=== PATIENT | male | born 1930 | race Caucasian/White ===

== ENCOUNTER 2016-11-05 11:35 | Inpatient (IN) | payer OTHER, BC ==
--- NOTE | 2016-11-05 11:43 | PDOC ---
Attending Attestation - Resident Resident Name: Mark Lopez - ED Attending Attestation I have performed the following: I have examined & evaluated the patient, The case was reviewed & discussed with the resident, I agree w/resident's findings & plan, Exceptions are as noted - HPI HPI: 11/05/16 11:43 The patient is an 85-year-old male, with a significant past medical history of hypertension and hyperlipidemia who presents to the emergency department after an episode of lightheadedness, that was followed by a fall with head trauma. He did not lose consciousness. he denies neck pain or trauma. He denies chest pain, dyspnea, palpitations. he takes ASA 81 mg daily. He has no known history of atrial fibrillation. 11/05/16 11:54 - Physicial Exam PE: 11/05/16 11:43 He is well-appearing and in no acute distress Vitals noted C-spine is nontender There is a 4 cm laceration of the scalp, non-boggy, without evidence of depressed fracture 11/05/16 11:44 EKG noted, atrial fibrillation As compared to prior EKG performed in October 2012, the atrial fibrillation seems to be new 11/05/16 11:55 11/05/16 13:11 - Medical Decision Making 11/05/16 12:24 The patient is well-appearing and in no acute distress His fall was precipitated by lightheadedness The etiology of his lightheadedness is unclear His atrial fibrillation is new according to the patient and the family Given his age, it is possible that he experienced an episode of rapid atrial fibrillation, causing transient hypotension with resultant transient cerebral hypoperfusion and presyncope Will admit 11/05/16 12:36 CT preliminary reading: No acute intracranial pathology Chest x-ray emergency Department interpretation: No acute cardiopulmonary disease Clinical impression: New onset atrial fibrillation Presyncope Closed head injury Case discussed in detail with admitting provider including history, physical exam and ancillary studies. Admitting physician has assumed care for the patient, will follow all pending diagnostics and will complete the evaluation and treatment. 11/05/16 13:12 4 shahid placed in the scalp laceration, after area was prepped with Betadine, explored and irrigated
--- NOTE | 2016-11-05 11:58 | PDOC ---
History of Present Illness - General Chief Complaint: Syncope/Near Syncope Stated Complaint: SYNCOPE, HEAD LAC Time Seen by Provider: 11/05/16 11:41 History Source: Patient, Spouse Exam Limitations: No Limitations - History of Present Illness Initial Comments: 11/05/16 12:29 Patient is a 85 year old male with PMH of HTN & HLD who presents to ED with light-headedness & fall earlier today. This morning he was walking in his house when he suddenly felt light-headed and fell backwards. He hit the back of his head on a small step in between rooms. He did not lose consciousness. He denies chest pain or SOB preceding or after the fall. Denies palpitations, headache, Nausea, vomiting, diarrhea or constipation. His granddaughter states he has had episodes of light-headedness before, as recently as Jaimie time. He also reports a mild cough this week, non productive Patient & spouse state he has no history of cardiac problems. Past History - Travel Traveled outside of the country in the last 30 days: No Close contact w/someone who was outside of country & ill: No - Past Medical History Allergies/Adverse Reactions: Allergies Allergy/AdvReac Type Severity Reaction Status Date / Time No Known Allergies Allergy Verified 11/05/16 11:40 Home Medications: Ambulatory Orders Amlodipine Besylate [Norvasc -] 10 mg PO DAILY 10/18/12 Simvastatin [Zocor] 40 mg PO DAILY 10/18/12 Aspirin [Aspirin EC] 81 mg PO Q48H 11/05/16 Anemia: No Asthma: No Cancer: No Cardiac Disorders: No CVA: No COPD: No CHF: No Dementia: No Diabetes: No GI Disorders: No Disorders: No HTN: Yes Hypercholesterolemia: Yes Liver Disease: No Seizures: No Thyroid Disease: No - Surgical History Abdominal Surgery: No Appendectomy: No Cardiac Surgery: No Cholecystectomy: No Lung Surgery: No Neurologic Surgery: No Orthopedic Surgery: Yes (Left Shoulder Arthroscopy,Bilateral Shoulder Arthroscopy) - Psycho/Social/Smoking Cessation Hx Anxiety: No Suicidal Ideation: No Smoking History: Former smoker Have you smoked in the past 12 months: No If you are a former smoker, when did you quit?: 1977 Information on smoking cessation initiated: No Hx Alcohol Use: Yes (occasional) Drug/Substance Use Hx: No Substance Use Type: None Hx Substance Use Treatment: No Cardiac Specific PMH - Complaint Specific PMHX Pacemaker: No Review of Systems - Review of Systems Able to Perform ROS?: Yes Is the patient limited Bengali proficient: No Respiratory: Yes: Cough All Other Systems: Reviewed and Negative *Physical Exam - Vital Signs Last Vital Signs Temp Pulse Resp BP Pulse Ox 97.7 F 86 18 113/68 99 11/05/16 11:35 11/05/16 12:45 11/05/16 12:45 11/05/16 12:45 11/05/16 12:45 - Physical Exam General Appearance: Yes: Nourished, Appropriately Dressed HEENT: positive: EOMI, LUIS, Normal ENT Inspection, Pharynx Normal Neck: positive: Trachea midline, Normal Thyroid, Supple Respiratory/Chest: positive: Lungs Clear, Normal Breath Sounds Cardiovascular: positive: S1, S2, Irregularly Irregular Gastrointestinal/Abdominal: positive: Normal Bowel Sounds, Flat, Soft Musculoskeletal: positive: Normal Inspection Extremity: positive: Normal Inspection, Normal Range of Motion Integumentary: positive: Normal Color, Dry, Warm, Other (4cm laceration at left upper posterior scalp) Neurologic: positive: Fully Oriented, Alert, Normal Mood/Affect, Motor Strength 5/5 Heart Score/ECG Review - History History: Slightly suspicious - Electrocardiogram EKG: Non specific repolarization disturbance - Age Age: >/= 65 - Risk Factors Risk Factors Heart Score: Yes Hx Hypercholesterolemia, Yes Hx Hypertension, Yes Smoking History Based on the list above the patient has:: >/=3 risk factors or Hx atherosclerotic disease - Troponin Troponin: </= normal limit - Score Heart Score - Total: 5 - ECG Impressions Normal ECG: No Comment:: 11/05/16 12:40 Atrial Fibrillation, 92bpm ED Treatment Course - LABORATORY CBC & Chemistry Diagram: 11/05/16 12:00 11/05/16 12:00 - ADDITIONAL ORDERS Additional order review: Laboratory Results 11/05/16 11/05/16 11/05/16 12:00 12:00 12:00 INR 1.13 Sodium 130 L Potassium 3.5 D Chloride 98 Carbon Dioxide 24 Anion Gap 8 BUN 16 Creatinine 1.2 D Creat Clearance w eGFR 57.54 Random Glucose 129 H D Calcium 8.4 Magnesium 1.8 Total Bilirubin 0.6 D AST 25 ALT 16 D Alkaline Phosphatase 148 H Creatine Kinase 86 Troponin I < 0.03 L Total Protein 6.3 L Albumin 3.9 11/05/16 12:00 RBC 4.85 MCV 89.8 MCHC 32.4 RDW 12.8 MPV 10.4 Neutrophils % 58.4 Lymphocytes % 24.0 Monocytes % 13.8 H Eosinophils % 3.1 Basophils % 0.7 - RADIOLOGY Radiology Studies Ordered: 11/05/16 12:[address]: No acute Pathology noted 11/05/16 13:01 CXR shows no acute pathology. Medical Decision Making - Medical Decision Making 11/05/16 12:41 Ordered CBC, CMP, Cardiac Profile, INR, TSH. CXR & Head CT also ordered to r/o acute bleed or fx. Likely will need admission for new-onset Atrial Fibrillation. 11/05/16 12:47 Troponins (-) x1. Head CT negative for bleed or fx. CXR (-) as well. Case discussed with Dr Cortes & agrees that patient will need to be admitted for workup of new-onset Atrial Fibrillation. Will require telemetry bed for continuous cardiac monitoring. 11/05/16 13:12 4 shahid administered to laceration site. No active bleeding. *DC/Admit/Observation/Transfer Diagnosis at time of Disposition: New onset atrial fibrillation, Pre-syncope, Closed head injury - Discharge Dispostion Condition at time of disposition: Stable Admit: Yes Decision to Admit order Date/Time: Decision to Admit Order Category Date Time Status Decision to Admit to Hospital Routine Phy Order 11/05/16 13:00 Ordered - Referrals
[2016-11-05 12:06] LABS: BASOPHIL 0.7 % (0-2.0); EOSINOPHIL 3.1 % (0-4.5); MCHC 32.4 g/dl (32.0-35.9); MEAN CELL VOLUME 89.8 fl (80-96); MEAN PLT VOLUME 10.4 fl (7.5-11.1); NEUTROPHILS 58.4 % (42.8-82.8); PLATELET COUNT 135 K/MM3 (134-434); RDW 12.8 % (11.9-15.9); WHITE BLOOD COUNT 4.5 K/mm3 (4.0-10.0)
[2016-11-05 12:13] VITALS: BMI 23.5
[2016-11-05 12:17] LABS: INR 1.13 (0.82-1.09); PROTHROMBIN TIME (PATIENT) 12.3 SEC (10.2-13.0)
[2016-11-05 12:21] LABS: CPK(DFH) 86 IU/L (38-174)
[2016-11-05 12:22] LABS: ALBUMIN 3.9 g/dl (3.5-5.0); BILIRUBIN,TOTAL 0.6 mg/dl (0.2-1.0); CALCIUM 8.4 mg/dl (8.4-10.2); CREATININE 1.2 mg/dl (0.6-1.3); MAGNESIUM 1.8 mg/dL (1.8-2.4); TOT PROT 6.3 g/dl (6.4-8.3)
[2016-11-05 12:33] LABS: TROPONIN I (DFP) < 0.03 ng/ml (0.03-0.50)
[2016-11-05] MEDS: BACITRACIN 30 GM TUBE TOPICAL OINTMENT TP SCH (15:41)
[2016-11-05] MEDS: METOPROLOL TARTRATE 25 MG TABLET (FP) PO SCH ×2 (15:41→21:31)
--- NOTE | 2016-11-05 15:56 | HP ---
CHIEF COMPLAINT: lightheaded, dizziness PCP: Mally HISTORY OF PRESENT ILLNESS: This is an 85 year old male with a past medical history of HTN, HLD who presented to the ED s/p fall this AM. Pt states that while he was walking around his house he suddenly felt dizzy and fell backwards and to the left, hitting his head on a wooden step sustaining a scalp laceration. He denies LOC. He states that prior to the episode of dizziness he felt fine but does report a cough x 4 days. Denies fever, CP, SOB, palpitations, abdominal pain, N/V/D. ER course was notable for: (1) ECG with atrial fibrillation (2) troponin negative x 1. (3) CT head with no acute disease Recent Travel: pt denies PAST MEDICAL HISTORY: HTN HLD PAST SURGICAL HISTORY: right shoulder arthroscopy bilat knee arthroscopy Social History: Smoking: quit 1977 Alcohol: occ glass of wine Drugs: pt denies Family History: mother age 84, [place] father age 70, lung CA brother alive, CAD, s/p CABG brother s/p colon CA 4 other brothers and one sister alive and well son with HTN, ministroke Allergies No Known Allergies Allergy (Verified 11/05/16 11:40) HOME MEDICATIONS: 3 Medication Instructions Recorded Amlodipine Besylate [Norvasc -] 10 mg PO DAILY 10/18/12 Simvastatin [Zocor] 40 mg PO DAILY 10/18/12 Aspirin [Aspirin EC] 81 mg PO Q48H 11/05/16 REVIEW OF SYSTEMS CONSTITUTIONAL: Absent: fever, chills, diaphoresis, generalized weakness, malaise, loss of appetite, weight change HEENT: Absent: rhinorrhea, nasal congestion, throat pain, throat swelling, difficulty swallowing, mouth swelling, ear pain, eye pain, visual changes CARDIOVASCULAR: Absent: chest pain, syncope, palpitations, irregular heart rate, lightheadedness , peripheral edema RESPIRATORY: Absent: cough, shortness of breath, dyspnea with exertion, orthopnea, wheezing, stridor, hemoptysis GASTROINTESTINAL: Absent: abdominal pain, abdominal distension, nausea, vomiting, diarrhea, constipation, melena, hematochezia GENITOURINARY: Absent: dysuria, frequency, urgency, hesitancy, hematuria, flank pain, genital pain MUSCULOSKELETAL: Present: fall with head injury Absent: myalgia, arthralgia, joint swelling, back pain, neck pain SKIN: Present: laceration right occipital region Absent: rash, itching, pallor HEMATOLOGIC/IMMUNOLOGIC: Absent: easy bleeding, easy bruising, lymphadenopathy, frequent infections ENDOCRINE: Absent: unexplained weight gain, unexplained weight loss, heat intolerance, cold intolerance NEUROLOGIC: Present: dizziness Absent: headache, focal weakness or paresthesias, unsteady gait, seizure, mental status changes, bladder or bowel incontinence PSYCHIATRIC: Absent: anxiety, depression, suicidal or homicidal ideation, hallucinations. PHYSICAL EXAMINATION Vital Signs - 24 hr 3 11/05/16 11/05/16 14:00 15:15 Temperature 97.6 F 98.4 F Pulse Rate 85 Pulse Rate [ 86 Left Apical] Respiratory 16 18 Rate Blood Pressure 127/58 Blood Pressure 118/54 [Right Arm] O2 Sat by Pulse 99 100 Oximetry (%) GENERAL: Awake, alert, and fully oriented, in no acute distress. HEAD: Normal with no signs of trauma. EYES: Pupils equal, round and reactive to light, extraocular movements intact, sclera anicteric, conjunctiva clear. No lid lag. EARS, NOSE, THROAT: Ears normal, nares patent, oropharynx clear without exudates. Moist mucous membranes. NECK: Normal range of motion, supple without lymphadenopathy, JVD, or masses. LUNGS: Breath sounds equal, clear to auscultation bilaterally. No crackles. No accessory muscle use. scattered expiratory wheeze right lung everett HEART: Irregular rate and rhythm, normal S1 and S2 without murmur, rub or gallop. ABDOMEN: Soft, nontender, not distended, normoactive bowel sounds, no guarding, no rebound, no masses. No hepatomegaly or splenomegaly. MUSCULOSKELETAL: Normal range of motion at all joints. No bony deformities or tenderness. No CVA tenderness. UPPER EXTREMITIES: 2+ pulses, warm, well-perfused. No cyanosis. No clubbing. Cap refill <2 seconds. No peripheral edema. LOWER EXTREMITIES: 2+ pulses, warm, well-perfused. No calf tenderness. No peripheral edema. NEUROLOGICAL: Cranial nerves II-XII intact. Normal speech. Normal gait. PSYCHIATRIC: Cooperative. Good eye contact. Appropriate mood and affect. SKIN: Warm, dry, normal turgor, no rashes or lesions noted. Laceration with 4 shahid left occipital area Laboratory Results - last 24 hr 3 11/05/16 11/05/16 11/05/16 12:00 12:00 12:00 WBC 4.5 RBC 4.85 Hgb 14.1 Hct 43.5 MCV 89.8 MCHC 32.4 RDW 12.8 Plt Count 135 MPV 10.4 Neutrophils % 58.4 Lymphocytes % 24.0 Monocytes % 13.8 H Eosinophils % 3.1 Basophils % 0.7 INR 1.13 Sodium 130 L Potassium 3.5 D Chloride 98 Carbon Dioxide 24 Anion Gap 8 BUN 16 Creatinine 1.2 D Creat Clearance w eGFR 57.54 Random Glucose 129 H D Calcium 8.4 Magnesium 1.8 Total Bilirubin 0.6 D AST 25 ALT 16 D Alkaline Phosphatase 148 H Creatine Kinase 86 Troponin I < 0.03 L Total Protein 6.3 L Albumin [address]: No evidence of acute intracranial pathology CXR: No acute pathology. No significant change since 10/18/12 ASSESSMENT/PLAN: 85yM with PMH HTN, HLD presented to ED with presyncope with head injury. Pt is being admitted for new onset atrial fibrillation. Presyncope with head injury - head CT negative - likely due to new onset afib - monitor tele x 24h - troponin neg x 1, trend x2 more - shahid in place, bacitracin daily and leave open to air atrial fibrillation, new onset - rebecca Krueger - hi norvas, start metoprolol 12.5mg BID - CHADSVASC 3, start eliquis for now, REBECCA sotelo fall risk on monday as he knows pt better. hold ASA for now cough/wheezing - flu swab ordered - CXR neg - albuterol x 1 now and PRN HTN - monitor BP on metoprolol and adjust dose accordingly HLD - home zocor 40mg changed to formulary lipitor 20mg DVT PPX - mod risk, started on eliquis for Afib FEN - sodium 130, gentle IV hydration, NS @ 75cc/hr - repeat BMP 6pm with troponin - low sodium diet Dispo: Pt currently requires inpatient care. Visit type - Emergency Visit Emergency Visit: Yes ED Registration Date: 11/05/16 Care time: The patient presented to the Emergency Department on the above date and was hospitalized for further evaluation of their emergent condition. - New Patient This patient is new to me today: Yes Date on this admission: 11/05/16 - Critical Care Critical Care patient: No
[2016-11-05] MEDS ORDERED: SODIUM CHLORIDE 1,000 ML IV SCH (16:00)
[2016-11-05] MEDS ORDERED: ALBUTEROL SO4 0.083% IH SOL 2.5 MG/3 ML VIAL.NEB. NEB PRN (16:15)
[2016-11-05 16:36] LABS: THYROID STIMULATING HORMONE 2.68 uIU/ml (0.358-3.74)
[2016-11-05] MEDS ORDERED: PT OWN MED DRAWER 7, Y5N ONE (17:32)
[2016-11-05 18:29] LABS: CPK(DFH) 76 IU/L (38-174)
[2016-11-05 20:03] LABS: TROPONIN I (DFP) < 0.03 ng/ml (0.03-0.50)
[2016-11-05] MEDS: ATORVASTATIN CA 20 MG TABLET (FP) PO SCH (21:31)
[2016-11-05] MEDS ORDERED: APIXABAN 5 MG TABLET PO SCH (22:00)
--- NOTE | 2016-11-05 23:22 | HOSP ---
Subjective - Review of Symptoms Events since last encounter: Hospitalist Encounter Notified by RN that the patient appears to be confused. Arrived to bedside, patient is found bending down by bedside table, when asked what he was doing, he stated "I'm looking for my shoes to go home" Patient is alert and oriented to name, month, year and birthdate. Not oriented to place. Performed mini mental screen- 1/3 Clock- could only draw [place] PE formed see assessment Patient placed closer to nursing station Order placed for Fall Risk Neurological: Yes: Confusion Physical Examination Vital Signs: Vital Signs Temperature 99.5 F 11/05/16 23:00 Pulse Rate 75 11/05/16 22:35 Respiratory Rate 18 11/05/16 22:35 Blood Pressure 121/62 11/05/16 22:35 O2 Sat by Pulse Oximetry (%) 97 11/05/16 22:35 Constitutional: Yes: Well Nourished, No Distress, Calm Eyes: Yes: WNL, Conjunctiva Clear, EOM Intact HENT: Yes: WNL, Atraumatic, Normocephalic Neck: Yes: WNL, Supple, Trachea Midline Cardiovascular: Yes: WNL, Regular Rate and Rhythm, S1, S2 Respiratory: Yes: WNL, Regular, CTA Bilaterally Gastrointestinal: Yes: WNL, Normal Bowel Sounds, Soft Musculoskeletal: Yes: WNL
[2016-11-06] LABS: CPK(DFH) 84 IU/L (38-174)
[2016-11-06 00:11] LABS: TROPONIN I (DFP) < 0.03 ng/ml (0.03-0.50)
--- NOTE | 2016-11-06 07:56 | CON.CARD ---
Consult Consult Specialty:: cardio Referred by:: hospitalist (for ashleigh) Reason for Consultation:: afib - History of Present Illness Chief Complaint: dizzy with fall History of Present Illness: 85 yo male presented with dizziness and fall. on DOA pt reports he suddenly felt dizzy and fell backwards and to the left, hitting his head on a wooden step sustaining a scalp laceration. He denies LOC. this is not the first fall he has had, as per verbal report to me from hospitalist who obtained hx from family of 1 or 2 prior falls, ? related to pain med he was on then. noted to be in afib in ER. overnight he became confused and trying to get dressed to leave the hospital currently he states he fell the day before yesterday he thinks, but cannot recall what happened or any sx's at that time PMH: HTN HPL no known cva/tia denies etoh or cigs (once in a while 1 shot of etoh) - Alcohol/Substance Use Hx Alcohol Use: Yes (occasional) - Smoking History Smoking history: Former smoker Have you smoked in the past 12 months: No If you are a former smoker, when did you quit?: 1977 Home Medications - Allergies Allergies/Adverse Reactions: Allergies Allergy/AdvReac Type Severity Reaction Status Date / Time No Known Allergies Allergy Verified 11/05/16 11:40 - Home Medications Home Medications: Ambulatory Orders Amlodipine Besylate [Norvasc -] 10 mg PO DAILY 10/18/12 Simvastatin [Zocor] 40 mg PO DAILY 10/18/12 Aspirin [Aspirin EC] 81 mg PO Q48H 11/05/16 Vital Signs: Vital Signs Temperature 98.5 F 11/06/16 06:00 Pulse Rate 86 11/06/16 06:00 Respiratory Rate 18 11/06/16 06:00 Blood Pressure 157/71 11/06/16 06:00 O2 Sat by Pulse Oximetry (%) 98 11/06/16 02:00 - Other Data Labs, Other Data: INR, PTT INR 1.13 (0.82-1.09) 11/05/16 12:00 Troponin, BNP 11/05/16 11/05/16 18:00 23:30 Troponin I < 0.03 L < 0.03 L Troponin, BNP 11/05/16 11/05/16 18:00 23:30 Troponin I < 0.03 L < 0.03 L Laboratory Tests 11/05/16 11/05/16 11/05/16 12:00 12:00 12:00 WBC 4.5 Hgb 14.1 Plt Count 135 Sodium 130 L Potassium 3.5 D Carbon Dioxide 24 BUN 16 Creatinine 1.2 D AST 25 ALT 16 D Troponin I < 0.03 L TSH 2.68 11/05/16 11/05/16 18:00 23:30 WBC Hgb Plt Count Sodium Potassium Carbon Dioxide BUN Creatinine AST ALT Troponin I < 0.03 L < 0.03 L TSH ekg 11/05: afib, normal axis/intervals; no path q's; no ST-T abn tele: afib HR to 100s--NSR since yest evening Imaging - Results Chest X-ray: Report Reviewed (clear lungs/pleura) Cat Scan: Report Reviewed (head: no acute cva or bleed) Assessment/Plan new afib, paroxysmal: -HR well controlled on its own -doubt the cause of his LH sx's, though possible--more likely was reactive to acute stress/adrenergic tone elevation in setting of post-fall/injury -CHADS VASC 3--risk of cva approx 3%/year -pt denies h/o GIB/PUD; however his falls risk is concerning; it remains unclear to me at this time whether or not there are reversible/correctable causes for his dizzy spells/falls, though he seems more likely than not to be at hi risk for falls; -he is also at risk for confusion while here in the hospital, with possible agitation and falls if gets up and walks around on his own as he was apparently trying to do last night -of particular concern is that the fall this time resulted in head trauma ( though CT head ruled out ICH) -his level of disorientation at present could be completely temporary (i.e. "sun -downing"), but if not, this is also a concern for risk of recurrent uncontrolled falls with injury -therefore, recommend for now holding AC and obtaining input from dr sotelo in am who knows pt from before -will change back to ASA 81 for now -needs PT gait eval to assess balance and falls risk as well -agree with low dose metoprolol for now as doing -check echo for LV fxn to further risk-stratify cva risk -serial trops negative, no isch ecg changes--no need inpt stress testing dizziness/falls: -? vestibular/balance problem -r/o orthostatics--check positional VSs here HTN: -well controlled on BB (for afib) -cont same
[2016-11-06 08:24] LABS: BASOPHIL 0.6 % (0-2.0); EOSINOPHIL 2.4 % (0-4.5); MCH 30.4 pg (25.7-33.7); MEAN CELL VOLUME 89.4 fl (80-96); MEAN PLT VOLUME 10.5 fl (7.5-11.1); PLATELET COUNT 92 K/MM3 (134-434)
[2016-11-06 08:40] LABS: ALBUMIN 3.1 g/dl (3.4-5.0); ALK PHOS 130 U/L (45-117); ANION GAP 9 (8-16); BILIRUBIN,TOTAL 0.6 mg/dL (0.2-1.0); CALCIUM 7.4 mg/dL (8.5-10.1); CO2 25 mmol/L (21-32); CREATININE 0.9 mg/dL (0.7-1.3); GLUCOSE,RANDOM 87 mg/dL (74-106); MAGNESIUM 1.9 mg/dL (1.8-2.4); PHOSPHOROUS 3.1 mg/dL (2.5-4.9); SGOT/AST 18 U/L (15-37); SGPT/ALT 16 U/L (12-78); TOT PROT 5.4 g/dl (6.4-8.2)
[2016-11-06 09:07] LABS: TROPONIN I < 0.02 ng/ml (0.00-0.05)
[2016-11-06] MEDS ORDERED: PT OWN MED DRAWER 7, Y5N ONE (09:38)
[2016-11-06] MEDS: ASPIRIN COATED 81 MG TABLET.EC PO SCH (09:44)
[2016-11-06] MEDS: METOPROLOL TARTRATE 25 MG TABLET (FP) PO SCH (09:44)
[2016-11-06] MEDS: BACITRACIN 30 GM TUBE TOPICAL OINTMENT TP SCH (09:48)
--- NOTE | 2016-11-06 12:38 | PN ---
Physical Exam: SUBJECTIVE: Patient seen and examined oob to chair. present. Feels better. No further episodes of dizziness. +Cough x several days. OBJECTIVE: Vital Signs Period Temp Pulse Resp BP Sys/Villalobos Pulse Ox Last 24 Hr 97.6 F-101.2 F 69-86 16-18 118-157/54-71 97-100 GENERAL: The patient is awake, alert, and fully oriented, in no acute distress. HEAD: Surgical shahid left occiput EYES: PERRL, extraocular movements intact, sclera anicteric, conjunctiva clear. No ptosis. LUNGS: Diffuse rhonchi and mild expiratory wheezing, cough HEART: Regular rate and rhythm, S1, S2 without murmur, rub or gallop. ABDOMEN: Soft, nontender, nondistended, normoactive bowel sounds, no guarding, no rebound EXTREMITIES: 2+ pulses, warm, well-perfused, no edema. NEUROLOGICAL: Cranial nerves II through XII grossly intact. Normal speech, gait not observed. Laboratory Results - last 24 hr 11/05/16 11/05/16 11/06/16 18:00 23:30 05:00 WBC Corrected WBC (auto) RBC Hgb Hct MCV MCHC RDW Plt Count MPV Neutrophils % Lymphocytes % Monocytes % Eosinophils % Basophils % Sodium 133 L Potassium 3.9 Chloride 99 Carbon Dioxide 25 Anion Gap 9 BUN 12 Creatinine 0.9 Creat Clearance w eGFR > 60 Random Glucose 87 Calcium 7.4 L Phosphorus 3.1 Magnesium 1.9 Total Bilirubin 0.6 AST 18 ALT 16 Alkaline Phosphatase 130 H Creatine Kinase 76 84 82 Troponin I < 0.03 L < 0.03 L < 0.02 Total Protein 5.4 L Albumin 3.1 L 11/06/16 11/06/16 05:00 06:00 WBC 4.0 Corrected WBC (auto) 4.00 RBC 3.91 L Hgb 11.9 Hct 35.0 L MCV 89.4 MCHC 34.0 RDW 13.0 Plt Count 92 L MPV 10.5 Neutrophils % 60.0 Lymphocytes % 22.7 Monocytes % 14.3 H Eosinophils % 2.4 Basophils % 0.6 Sodium Potassium Chloride Carbon Dioxide Anion Gap BUN Creatinine Creat Clearance w eGFR Random Glucose Calcium Phosphorus Magnesium Total Bilirubin AST ALT Alkaline Phosphatase Creatine Kinase Cancelled Troponin I Cancelled Total Protein Albumin Active Medications Generic Name Dose Route Start Last Admin Trade Name Freq PRN Reason Stop Dose Admin Albuterol Sulfate 1 amp 11/05/16 16:15 11/05/16 16:28 Ventolin 0.083% Nebulizer Soln - NEB 1 amp QIDR PRN Administration WHEEZING Aspirin 81 mg 11/06/16 10:00 11/06/16 09:44 Ecotrin - PO 81 mg DAILY MARY Administration Atorvastatin Calcium 20 mg 11/05/16 22:00 11/05/16 21:31 Lipitor - PO 20 mg HS AMRY Administration Bacitracin 1 applic 11/05/16 15:00 11/06/16 09:48 Bacitracin - TP 1 applic DAILY MARY Administration Metoprolol Tartrate 25 mg 11/06/16 10:00 11/06/16 09:44 Lopressor - PO 25 mg DAILY MARY Administration ASSESSMENT & PLAN 85 year-old man with a PMH of HTN and HLD, admitted for presyncope leading to fall and closed head injury, and newly diagnosed paroxysmal afib. Presyncope Paroxysmal atrial fibrillation, newly diagnosed --was in afib on admission, now in sinus rhythm --serial troponins negative --rate is well-controlled in 60s --continue lopressor 25mg QD per cardiology, hold amlodipine due to low BP and vasodilatory effect may be contributing to syncopal episodes --hold Eliquis due to fall risk and discuss long-term anti-coagulation with PCP tomorrow --echo pending --orthostatics --cardiology following Head laceration --s/p presyncope and fall --CT head no acute process --surgical shahid in place Cough --former smoker, no previous diagnosis of COPD --rhonchi and mild wheezing on exam --fever to 101.2, no leukocytosis --flu negative --start Levaquin --duonebs scheduled --IS Hyponatremia, improving --improving 130-->133 --no further IV fluids Hypertension --BP presently well-controlled --continue metorpolol Hyperlipidemia --continue statin F/E/N Fluids: PO intake adequate Electrolytes: replete as indicated Nutrition: low sodium diet DVT prophylaxis: lovenox, oob, ambulation Dispo: continues to require inpatient care. Full Code. Visit type - Emergency Visit Emergency Visit: Yes ED Registration Date: 11/05/16 Care time: The patient presented to the Emergency Department on the above date and was hospitalized for further evaluation of their emergent condition. - New Patient This patient is new to me today: Yes Date on this admission: 11/06/16 - Critical Care Critical Care patient: No
[2016-11-06] MEDS ORDERED: LEVOFLOXACIN 500 MG IVPB 100 ML IVPB ONE ×2 (13:10→16:15)
[2016-11-06 14:40] LABS: PH,URINE 5.5 (4.5-8); URINE APPEARANCE Clear; URINE BILIRUBIN Negative (NEGATIVE); URINE GLUCOSE (UA) Negative (NEGATIVE); URINE KETONE Negative (NEGATIVE); URINE LEUK ESTERASE Negative (NEGATIVE); URINE NITRITE Negative (NEGATIVE); URINE PROTEIN Negative (NEGATIVE); URINE UROBILINOGEN 0.2 E.U/dl (0.2-1.0)
[2016-11-06 15:57] LABS: URINE BLOOD NEG (NEGATIVE); URINE COLOR YELLOW
[2016-11-06] MEDS: ALBUTEROL SO4 2.5/IPRATROPIUM 0.5 INH SOL 3 ML VIAL.NEB. NEB SCH (17:16)
[2016-11-06] MEDS: ATORVASTATIN CA 20 MG TABLET (FP) PO SCH (21:38)
--- NOTE | 2016-11-06 23:36 | EKG ---
Test Reason : Blood Pressure : / mmHG Vent. Rate : 092 BPM Atrial Rate : 092 BPM P-R Int : 000 ms QRS Dur : 082 ms QT Int : 338 ms P-R-T Axes : 000 036 068 degrees QTc Int : 417 ms ATRIAL FIBRILLATION NONSPECIFIC T WAVE ABNORMALITY ABNORMAL ECG NO PREVIOUS ECGS AVAILABLE Confirmed by ISMAEL CALDWELL, KAYLAN ([id number]) on 11/06/2016 11:35:55 PM Referred By: EVELYN SCHRADER Confirmed By:KAYLAN GUEVARA MD
[2016-11-07] MEDS: ALBUTEROL SO4 2.5/IPRATROPIUM 0.5 INH SOL 3 ML VIAL.NEB. NEB SCH ×2 (00:11→05:41)
[2016-11-07 09:04] LABS: ALBUMIN 3.5 g/dl (3.5-5.0); ALK PHOS 121 U/L (32-92); ANION GAP 10 (8-16); BASOPHIL 0.2 % (0-2.0); BILIRUBIN,TOTAL 0.9 mg/dl (0.2-1.0); CO2 23 mmol/L (22-28); CREATININE 0.9 mg/dl (0.6-1.3); EOSINOPHIL 1.4 % (0-4.5); GLUCOSE,RANDOM 99 mg/dl (74-106); MAGNESIUM 1.5 mg/dL (1.8-2.4); MCH 29.9 pg (25.7-33.7); MCHC 33.7 g/dl (32.0-35.9); MEAN CELL VOLUME 88.7 fl (80-96); MEAN PLT VOLUME 11.4 fl (7.5-11.1); NEUTROPHILS 60.3 % (42.8-82.8); PLATELET COUNT 99 K/MM3 (134-434); RDW 12.3 % (11.9-15.9); SGOT/AST 27 U/L (10-42); SGPT/ALT 14 U/L (10-40); TOT PROT 5.6 g/dl (6.4-8.3); WHITE BLOOD COUNT 4.1 K/mm3 (4.0-10.0)
[2016-11-07] MEDS ORDERED: MAGNESIUM SULFATE 2 GM in SODIUM CHLORIDE 100 ML IVPB ONE (09:35)
--- NOTE | 2016-11-07 09:38 | PN ---
[id number]. OBJECTIVE: patient is a 85 year-old man with a PMH of HTN and HLD, admitted for presyncope leading to fall and closed head injury, and newly diagnosed paroxysmal afib. Vital Signs Period Temp Pulse Resp BP Sys/Villalobos Pulse Ox Last 24 Hr 98.6 F-99.5 F 60-80 20-24 130-145/55-63 92-97 GENERAL: The patient is awake, alert, and fully oriented, in no acute distress. HEAD: Normal with no signs of trauma, shahid noted toparietal scalp wound well approximated no drainage noted EYES: PERRL, extraocular movements intact, sclera anicteric, conjunctiva clear. No ptosis. ENT: Ears normal, nares patent, oropharynx clear without exudates, moist mucous membranes. NECK: Trachea midline, full range of motion, supple. LUNGS: Breath sounds equal, crackles/rhonchi noted to the right lower lobe, clear to left apex and base, wheezing noted to right lower lobe, no accessory muscle use. HEART: Regular rate and rhythm, S1, S2 without murmur, rub or gallop. ABDOMEN: Soft, nontender, nondistended, normoactive bowel sounds, no guarding, no rebound, no hepatosplenomegaly, no masses. EXTREMITIES: 2+ pulses, warm, well-perfused, no edema. NEUROLOGICAL: Cranial nerves II through XII grossly intact. Normal speech, gait not observed. PSYCH: Normal mood, normal affect. SKIN: Warm, dry, normal turgor, no rashes or lesions noted Laboratory Results - last 24 hr 11/06/16 11/07/16 11/07/16 14:00 07:30 07:30 WBC 4.1 RBC 4.25 Hgb 12.7 Hct 37.7 MCV 88.7 MCHC 33.7 RDW 12.3 Plt Count 99 L D MPV 11.4 H Neutrophils % 60.3 Lymphocytes % 27.5 Monocytes % 10.6 H Eosinophils % 1.4 Basophils % 0.2 Sodium 127 L Potassium 3.6 Chloride 94 L Carbon Dioxide 23 Anion Gap 10 BUN 12 D Creatinine 0.9 D Creat Clearance w eGFR > 60 Random Glucose 99 D Calcium 8.0 L Magnesium 1.5 L D Total Bilirubin 0.9 D AST 27 ALT 14 Alkaline Phosphatase 121 H Total Protein 5.6 L Albumin 3.5 Urine Color Yellow Urine Appearance Clear Urine pH 5.5 D Ur Specific Ayden 1.020 Urine Protein Negative Urine Glucose (UA) Negative Urine Ketones Negative Urine Blood Neg Urine Nitrite Negative Urine Bilirubin Negative Urine Urobilinogen 0.2 e.u/dl Ur Leukocyte Esterase Negative Active Medications Generic Name Dose Route Start Last Admin Trade Name Freq PRN Reason Stop Dose Admin Albuterol Sulfate 1 amp 11/07/16 10:04 Ventolin 0.083% Nebulizer Soln - NEB Q4H PRN WHEEZING Aspirin 81 mg 11/06/16 10:00 11/07/16 10:04 Ecotrin - PO 81 mg DAILY MARY Administration Atorvastatin Calcium 20 mg 11/05/16 22:00 11/06/16 21:38 Lipitor - PO 20 mg HS MARY Administration Bacitracin 1 applic 11/05/16 15:00 11/07/16 10:04 Bacitracin - TP 1 applic DAILY MARY Administration Potassium Chloride/Sodium Chloride 1,000 mls @ 75 mls/hr 11/07/16 11:00 11:38 Ns+20 Meq Kcl - IV 11/08/16 00:19 75 mls/hr ASDIR MARY Administration Methylprednisolone Sodium Succinate 40 mg 11/07/16 10:30 11/07/16 11:38 Solu-Medrol - IVPB 40 mg Q8H-IV MARY Administration Metoprolol Tartrate 25 mg 11/06/16 10:00 11/07/16 10:04 Lopressor - PO 25 mg DAILY MARY Administration Tiotropium [place] 1 puff 11/07/16 10:30 11/07/16 11:38 Spiriva - IH 1 puff DAILY MARY Administration Microbiology 11/05/16 16:30 Nasopharyngeal Swab Influenza Types A,B Antigen (KELSEY) - Final , negative IMAGING CT of head, no acute pathology cxr no infilitrate no effusion noted ASSESSMENT/PLAN: 1) card: paroxysmal atrial fibrillation - pt is now in NSR - continue lopressor - case discussed with Dr Bal (PCP), as per Dr Bal, patient is at low risk for falls. - pending ECHO hypertension - continue lopressor, b/p at goal hyperlipidemia - continue statin cardiology consulted and following 2) Pulm - pt is wheezing on exam with audible rhonchi, past history of tobacco smoker, will order ct of chest w/o contrast - low grade temp noted, no leukocytosis noted, likely viral uri - prn albuterol nebulizers, spiriva, solumedrol taper appropriately - appreciate pulmonary input F/E/N hyponatremia noted, will order gentle ivf regular diet DVT prophylaxis: lovenox, oob, ambulation Dispo: continues to require inpatient telemetry care. Full Code. Visit type - Emergency Visit Emergency Visit: Yes ED Registration Date: 11/05/16 Care time: The patient presented to the Emergency Department on the above date and was hospitalized for further evaluation of their emergent condition. - New Patient This patient is new to me today: Yes Date on this admission: 11/07/16 - Critical Care Critical Care patient: Yes Total Critical Care Time (in minutes): 45 Critical Care Statement: The care of this patient involved high complexity decision making to prevent further life threatening deterioration of the patient 's condition and/or to evalute & treat vital organ system(s) failure or risk of failure. - Discharge Referral Referred to [facility] Med P.C.: No
--- NOTE | 2016-11-07 10:02 | PN ---
Progress Note (short form) - Note Progress Note: PULMONARY CONSULTATION DICTATED 11/07/16 IMP ACUTE BRONCHITIS,R/O PNEUMONIA NEW ONSET A-FIB NEAR SYNCOPE S/P FALL HTN HLD THROMBOCYTOPENIA PLAN INHALED BRONCHODILATORS IV STEROIDS X 48HR NASAL O2 CHEST CT RATE CONTROL MONITOR PLT CT DR BURKS Problem List - Problems (1) Closed head injury Code(s): S09.90XA - UNSPECIFIED INJURY OF HEAD, INITIAL ENCOUNTER (2) New onset atrial fibrillation Code(s): I48.91 - UNSPECIFIED ATRIAL FIBRILLATION (3) Pre-syncope Code(s): R55 - SYNCOPE AND COLLAPSE (4) Bronchitis after surgery Code(s): J40 - BRONCHITIS, NOT SPECIFIED ACUTE OR CHRONIC (5) Thrombocytopenia Code(s): D69.6 - THROMBOCYTOPENIA, UNSPECIFIED (6) Pneumonia Code(s): J18.9 - PNEUMONIA, UNSPECIFIED ORGANISM
[2016-11-07] MEDS: BACITRACIN 30 GM TUBE TOPICAL OINTMENT TP SCH (10:04)
[2016-11-07] MEDS: METOPROLOL TARTRATE 25 MG TABLET (FP) PO SCH (10:04)
[2016-11-07] MEDS: ASPIRIN COATED 81 MG TABLET.EC PO SCH (10:04)
[2016-11-07] MEDS ORDERED: MAGNESIUM SULF 50% (8.12 MEQ/2 ML-1 GM VIAL) IVPB ONE (10:15)
[2016-11-07] MEDS ORDERED: SODIUM CHLORIDE 0.9%/KCL 1,000 ML IV SCH (11:00)
--- NOTE | 2016-11-07 11:08 | EKG ---
Test Reason : Blood Pressure : / mmHG Vent. Rate : 065 BPM Atrial Rate : 065 BPM P-R Int : 210 ms QRS Dur : 084 ms QT Int : 406 ms P-R-T Axes : 069 026 042 degrees QTc Int : 422 ms SINUS RHYTHM WITH 1ST DEGREE A-V BLOCK OTHERWISE NORMAL ECG WHEN COMPARED WITH ECG OF 05-NOV-2016 11:38, SINUS RHYTHM HAS REPLACED ATRIAL FIBRILLATION Confirmed by JENNA CALDWELL, ANILA ([id number]) on 11/07/2016 11:07:32 AM Referred By: Arnoldo Bal Confirmed By:ANILA WEST MD
[2016-11-07] MEDS ORDERED: PT OWN MED DRAWER 7, Y5N ONE ×3 (11:12→21:13)
[2016-11-07] MEDS: TIOTROPIUM BROMIDE 18 MCG/INH (DEVICE W/ 5 CAPSULES) IH SCH (11:38)
[2016-11-07] MEDS: methylPREDNISolone NA SUCC 40 MG/1 ML VIAL IVPB SCH ×2 (11:38→17:59)
[2016-11-07] MEDS: BUDESONIDE/FORMETEROL FUMARATE 80/4.5 mcg INHALER IH SCH ×2 (13:09→21:21)
[2016-11-07] MEDS ORDERED: AZITHROMYCIN IVPB 500 MG in DEXTROSE 5%-WATER - 250 ML IVPB ONE (13:27)
[2016-11-07] MEDS ORDERED: CEFTRIAXONE 1 GM in DEXTROSE 5%-WATER - 50 ML IVPB SCH (13:30)
[2016-11-07] MEDS ORDERED: AZITHROMYCIN IVPB 500 MG/250 ML D5W PRE-DOCKED IVPB ONE (14:00)
[2016-11-07] MEDS: cefTRIAXone 1 GM/50 ML BAG (PRE-DOCKED) IVPB SCH (14:17)
[2016-11-07] MEDS: LACTOBACILLUS ACIDOPHILUS 1 EACH TAB (FP) PO SCH (14:17)
[2016-11-07] MEDS: APIXABAN 5 MG TABLET PO SCH (21:17)
[2016-11-07] MEDS: ATORVASTATIN CA 20 MG TABLET (FP) PO SCH (21:17)
[2016-11-08] MEDS: methylPREDNISolone NA SUCC 40 MG/1 ML VIAL IVPB SCH ×3 (01:22→16:59)
--- NOTE | 2016-11-08 07:57 | PN ---
Progress Note, Physician History of Present Illness: PULMONARY ALERT,FEELING BETTER,LESS COUGH,-SOB - Current Medication List Current Medications: Active Medications Albuterol Sulfate (Ventolin 0.083% Nebulizer Soln -) 1 amp NEB Q4H PRN PRN Reason: WHEEZING Apixaban (Eliquis -) 5 mg PO BID [facility] Last Admin: 11/07/16 21:17 Dose: 5 mg Atorvastatin Calcium (Lipitor -) 20 mg PO HS [facility] Last Admin: 11/07/16 21:17 Dose: 20 mg Bacitracin (Bacitracin -) 1 applic TP DAILY [facility] Last Admin: 11/07/16 10:04 Dose: 1 applic Budesonide/Formoterol Fumarate (Symbicort 80/4.5mcg -) 2 puff IH BID [facility] Last Admin: 11/07/16 21:21 Dose: 2 puff Ceftriaxone Sodium (Rocephin 1gm Ivpb (Pre-Docked)) 1 gm IVPB DAILY [facility] Last Admin: 11/07/16 14:17 Dose: 1 gm Azithromycin 250 mg/ Dextrose 250 mls @ 250 mls/hr IVPB DAILY [facility] Stop: 11/11/16 10:00 Lactobacillus Acidophilus (Bacid -) 1 tab PO DAILY [facility] Last Admin: 11/07/16 14:17 Dose: 1 tab Methylprednisolone Sodium Succinate (Solu-Medrol -) 40 mg IVPB Q8H-IV [facility] Last Admin: 11/08/16 01:22 Dose: 40 mg Metoprolol Tartrate (Lopressor -) 25 mg PO DAILY [facility] Last Admin: 11/07/16 10:04 Dose: 25 mg Tiotropium [place] (Spiriva -) 1 puff IH DAILY [facility] Last Admin: 11/07/16 11:38 Dose: 1 puff - Objective Vital Signs: Vital Signs Temperature 98.0 F 11/08/16 05:24 Pulse Rate 60 11/08/16 05:24 Respiratory Rate 18 11/08/16 05:24 Blood Pressure 143/65 11/08/16 05:24 O2 Sat by Pulse Oximetry (%) 95 11/08/16 05:24 Constitutional: Yes: Well Nourished, Calm Eyes: Yes: WNL HENT: Yes: WNL Neck: Yes: WNL Cardiovascular: Yes: Regular Rate and Rhythm, S1, S2 Respiratory: Yes: Rhonchi (INDRA RHONCHI) Gastrointestinal: Yes: Normal Bowel Sounds, Soft Extremities: Yes: WNL Edema: No Labs: CBC, BMP 11/07/16 07:30 11/07/16 07:30 INR, PTT INR 1.13 (0.82-1.09) 11/05/16 12:00 - ....Imaging Cat Scan: Report Reviewed, Image Reviewed Problem List - Problems (1) Closed head injury Code(s): S09.90XA - UNSPECIFIED INJURY OF HEAD, INITIAL ENCOUNTER (2) New onset atrial fibrillation Code(s): I48.91 - UNSPECIFIED ATRIAL FIBRILLATION (3) Pre-syncope Code(s): R55 - SYNCOPE AND COLLAPSE (4) Bronchitis after surgery Code(s): J40 - BRONCHITIS, NOT SPECIFIED ACUTE OR CHRONIC (5) Thrombocytopenia Code(s): D69.6 - THROMBOCYTOPENIA, UNSPECIFIED Assessment/Plan IMP PNEUMONIA LLL NEW ONSET A-FIB NEAR SYNCOPE S/P FALL HTN HLD THROMBOCYTOPENIA HYPONATREMIA PLAN INHALED BRONCHODILATORS IV STEROIDS X 48HR CONT ANTIBIOTICS NASAL O2 RATE CONTROL MONITOR PLT CT MONITOR FABIANO PONCE DR Problem List - Problems (1) Closed head injury Code(s): S09.90XA - UNSPECIFIED INJURY OF HEAD, INITIAL ENCOUNTER (2) New onset atrial fibrillation Code(s): I48.91 - UNSPECIFIED ATRIAL FIBRILLATION (3) Pre-syncope Code(s): R55 - SYNCOPE AND COLLAPSE (4) Bronchitis after surgery Code(s): J40 - BRONCHITIS, NOT SPECIFIED ACUTE OR CHRONIC (5) Thrombocytopenia Code(s): D69.6 - THROMBOCYTOPENIA, UNSPECIFIED
[2016-11-08] MEDS ORDERED: PT OWN MED DRAWER 7, Y5N ONE ×3 (09:58→21:40)
[2016-11-08] MEDS ORDERED: REFRIGERATED ANITBIOTICS ONE (10:01)
[2016-11-08] MEDS: cefTRIAXone 1 GM/50 ML BAG (PRE-DOCKED) IVPB SCH (10:08)
[2016-11-08] MEDS: LACTOBACILLUS ACIDOPHILUS 1 EACH TAB (FP) PO SCH (10:17)
[2016-11-08] MEDS: APIXABAN 5 MG TABLET PO SCH ×2 (10:17→21:57)
[2016-11-08] MEDS: METOPROLOL TARTRATE 25 MG TABLET (FP) PO SCH (10:17)
[2016-11-08] MEDS: BACITRACIN 30 GM TUBE TOPICAL OINTMENT TP SCH (10:17)
[2016-11-08] MEDS: TIOTROPIUM BROMIDE 18 MCG/INH (DEVICE W/ 5 CAPSULES) IH SCH (10:18)
[2016-11-08] MEDS: BUDESONIDE/FORMETEROL FUMARATE 80/4.5 mcg INHALER IH SCH ×2 (10:18→21:57)
[2016-11-08] MEDS: AZITHROMYCIN IVPB 250 MG in DEXTROSE 5%-WATER - 250 ML IVPB SCH (10:19)
[2016-11-08 11:34] LABS: ALBUMIN 3.6 g/dl (3.5-5.0); ALK PHOS 112 U/L (32-92); ANION GAP 5 (8-16); BILIRUBIN,TOTAL 0.4 mg/dl (0.2-1.0); CALCIUM 8.1 mg/dl (8.4-10.2); CO2 22 mmol/L (22-28); CREATININE 0.9 mg/dl (0.6-1.3); GLUCOSE,RANDOM 209 mg/dl (74-106); MAGNESIUM 1.9 mg/dL (1.8-2.4); PHOSPHOROUS 2.7 mg/dl (2.5-4.6); SGOT/AST 35 U/L (10-42); SGPT/ALT 18 U/L (10-40); TOT PROT 6.3 g/dl (6.4-8.3)
--- NOTE | 2016-11-08 13:58 | PN ---
[id number] patient is a 85 year-old man with a PMH of HTN and HLD, admitted for presyncope leading to fall and closed head injury, and newly diagnosed paroxysmal afib. Vital Signs Period Temp Pulse Resp BP Sys/Villalobos Pulse Ox Last 24 Hr 98.0 F-98.6 F 60-95 16-18 135-145/57-68 95-97 GENERAL: The patient is awake, alert, and fully oriented, in no acute distress. HEAD: Normal with no signs of trauma. EYES: PERRL, extraocular movements intact, sclera anicteric, conjunctiva clear. No ptosis. ENT: Ears normal, nares patent, oropharynx clear without exudates, moist mucous membranes. NECK: Trachea midline, full range of motion, supple. LUNGS: Breath sounds equal, clear to auscultation bilaterally To apexes, course rhonchi noted to bases, hr assistant moist cough notedno wheezes, no crackles, no accessory muscle use. HEART: Regular rate and rhythm, S1, S2 without murmur, rub or gallop. ABDOMEN: Soft, nontender, nondistended, normoactive bowel sounds, no guarding, no rebound, no hepatosplenomegaly, no masses. EXTREMITIES: 2+ pulses, warm, well-perfused, no edema. NEUROLOGICAL: Cranial nerves II through XII grossly intact. Normal speech, gait not observed. PSYCH: Normal mood, normal affect. SKIN: Warm, dry, normal turgor, no rashes or lesions noted Laboratory Results - last 24 hr 11/08/16 Unknown Sodium 131 L Potassium 3.6 Chloride 104 D Carbon Dioxide 22 Anion Gap 5 L BUN 20 H D Creatinine 0.9 Creat Clearance w eGFR > 60 Random Glucose 209 H D Calcium 8.1 L Phosphorus 2.7 Magnesium 1.9 D Total Bilirubin 0.4 D AST 35 D ALT 18 D Alkaline Phosphatase 112 H Total Protein 6.3 L Albumin 3.6 Active Medications Generic Name Dose Route Start Last Admin Trade Name Freq PRN Reason Stop Dose Admin Albuterol Sulfate 1 amp 11/07/16 10:04 Ventolin 0.083% Nebulizer Soln - NEB Q4H PRN WHEEZING Apixaban 5 mg 11/07/16 22:00 11/08/16 10:17 Eliquis - PO 5 mg BID MARY Administration Atorvastatin Calcium 20 mg 11/05/16 22:00 11/07/16 21:17 Lipitor - PO 20 mg HS MARY Administration Bacitracin 1 applic 11/05/16 15:00 11/08/16 10:17 Bacitracin - TP 1 applic DAILY MARY Administration Budesonide/Formoterol Fumarate 2 puff 11/07/16 12:00 11/08/16 10:18 Symbicort 80/4.5mcg - IH 2 puff BID MARY Administration Ceftriaxone Sodium 1 gm 11/07/16 14:30 11/08/16 10:08 Rocephin 1gm Ivpb (Pre-Docked) IVPB 1 gm DAILY MARY Administration Azithromycin 250 mg/ Dextrose 250 mls @ 250 mls/hr 11/08/16 10:00 11/08/16 10: 19 IVPB 11/11/16 10:00 250 mls/hr DAILY MARY Administration Lactobacillus Acidophilus 1 tab 11/07/16 13:45 11/08/16 10:17 Bacid - PO 1 tab DAILY MARY Administration Methylprednisolone Sodium Succinate 40 mg 11/07/16 10:30 11/08/16 10:17 Solu-Medrol - IVPB 40 mg Q8H-IV MARY Administration Metoprolol Tartrate 25 mg 11/06/16 10:00 11/08/16 10:17 Lopressor - PO 25 mg DAILY MARY Administration Tiotropium [place] 1 puff 11/07/16 10:30 11/08/16 10:18 Spiriva - IH 1 puff DAILY MARY Administration Microbiology 11/06/16 14:00 Urine - Urine Clean Catch Urine Culture - Final Contaminated: Please Repeat 11/06/16 15:00 Blood - Peripheral Venous Blood Culture - Preliminary NO GROWTH OBTAINED AFTER 24 HOURS, INCUBATION TO CONTINUE FOR 4 DAYS. 11/06/16 15:30 Blood - Peripheral Venous Blood Culture - Preliminary NO GROWTH OBTAINED AFTER 24 HOURS, INCUBATION TO CONTINUE FOR 4 DAYS. 11/06/16 14:45 Blood - Peripheral Venous Blood Culture - Preliminary NO GROWTH OBTAINED AFTER 24 HOURS, INCUBATION TO CONTINUE FOR 4 DAYS. 11/05/16 16:30 Nasopharyngeal Swab Respiratory Virus Panel - Preliminary 11/05/16 16:30 Nasopharyngeal Swab Influenza Types A,B Antigen (KELSEY) - Final ,negative 11/05/16 16:30 Nasopharyngeal Swab - Final ASSESSMENT/PLAN: IMAGING CT of head, no acute pathology cxr no infilitrate no effusion noted ASSESSMENT/PLAN: 1) card: paroxysmal atrial fibrillation - pt is now in NSR - continue lopressor - case discussed with Dr Bal (PCP), as per Dr Bal, patient is at low risk for falls, start eliquis - ECHO,LV WNL moderate to severe aortic sclerosis, trace PVR hypertension - continue lopressor, b/p at goal hyperlipidemia - continue statin cardiology consulted and following 2) Pulm - continue solumedrol 40mg TID -CT chest without contrast, small patchy infiltrate to posterior left lower lobe and left upper lobe PNA, 4.2cm ascending thoracic aneurysm - continue prn albuterol nebulizers, spiriva, symbicort - pulmonary input F/E/N hyponatremia, sodium 131, trending upward regular diet DVT prophylaxis: lovenox, oob, ambulation Dispo: continues to require inpatient telemetry care. Full Code. Visit type - Emergency Visit Emergency Visit: Yes ED Registration Date: 11/05/16 Care time: The patient presented to the Emergency Department on the above date and was hospitalized for further evaluation of their emergent condition. - New Patient This patient is new to me today: No - Critical Care Critical Care patient: No - Discharge Referral Referred to [facility] Med P.C.: No
[2016-11-08 14:07] LABS: MCH 28.8 pg (25.7-33.7); MCHC 32.3 g/dl (32.0-35.9); MEAN PLT VOLUME 11.3 fl (7.5-11.1); PLATELET COUNT 127 K/MM3 (134-434); RDW 11.9 % (11.9-15.9); WHITE BLOOD COUNT 5.6 K/mm3 (4.0-10.0)
[2016-11-08] MEDS ORDERED: SODIUM CHLORIDE 0.9%/KCL 1,000 ML IV SCH (14:15)
[2016-11-08] MEDS: ATORVASTATIN CA 20 MG TABLET (FP) PO SCH (21:57)
[2016-11-08] MEDS: ALBUTEROL SO4 0.083% IH SOL 2.5 MG/3 ML VIAL.NEB. NEB PRN (22:02)
[2016-11-09] MEDS: methylPREDNISolone NA SUCC 40 MG/1 ML VIAL IVPB SCH ×2 (01:16→10:07)
[2016-11-09] MEDS: ALBUTEROL SO4 0.083% IH SOL 2.5 MG/3 ML VIAL.NEB. NEB PRN (06:15)
--- NOTE | 2016-11-09 07:27 | PN ---
Progress Note, Physician History of Present Illness: pulmonary feeling better,less cough,-congestion - Current Medication List Current Medications: Active Medications Albuterol Sulfate (Ventolin 0.083% Nebulizer Soln -) 1 amp NEB Q4H PRN PRN Reason: WHEEZING Last Admin: 11/09/16 06:15 Dose: 1 amp Apixaban (Eliquis -) 5 mg PO BID [facility] Last Admin: 11/08/16 21:57 Dose: 5 mg Atorvastatin Calcium (Lipitor -) 20 mg PO HS [facility] Last Admin: 11/08/16 21:57 Dose: 20 mg Bacitracin (Bacitracin -) 1 applic TP DAILY [facility] Last Admin: 11/08/16 10:17 Dose: 1 applic Budesonide/Formoterol Fumarate (Symbicort 80/4.5mcg -) 2 puff IH BID [facility] Last Admin: 11/08/16 21:57 Dose: 2 puff Ceftriaxone Sodium (Rocephin 1gm Ivpb (Pre-Docked)) 1 gm IVPB DAILY [facility] Last Admin: 11/08/16 10:08 Dose: 1 gm Azithromycin 250 mg/ Dextrose 250 mls @ 250 mls/hr IVPB DAILY [facility] Stop: 11/11/16 10:00 Last Admin: 11/08/16 10:19 Dose: 250 mls/hr Lactobacillus Acidophilus (Bacid -) 1 tab PO DAILY [facility] Last Admin: 11/08/16 10:17 Dose: 1 tab Methylprednisolone Sodium Succinate (Solu-Medrol -) 40 mg IVPB Q8H-IV [facility] Last Admin: 11/09/16 01:16 Dose: 40 mg Metoprolol Tartrate (Lopressor -) 25 mg PO DAILY [facility] Last Admin: 11/08/16 10:17 Dose: 25 mg Tiotropium [place] (Spiriva -) 1 puff IH DAILY [facility] Last Admin: 11/08/16 10:18 Dose: 1 puff - Objective Vital Signs: Vital Signs Temperature 98.9 F 11/09/16 05:57 Pulse Rate 65 11/09/16 05:57 Respiratory Rate 18 11/09/16 05:57 Blood Pressure 160/63 11/09/16 05:57 O2 Sat by Pulse Oximetry (%) 96 11/09/16 05:57 Constitutional: Yes: Well Nourished, Calm Eyes: Yes: WNL HENT: Yes: WNL Neck: Yes: WNL Cardiovascular: Yes: Regular Rate and Rhythm, S1, S2 Respiratory: Yes: Rales (few crackles left base) Gastrointestinal: Yes: Normal Bowel Sounds, Soft Extremities: Yes: WNL Edema: No Labs: CBC, BMP Problem List - Problems (1) Closed head injury Code(s): S09.90XA - UNSPECIFIED INJURY OF HEAD, INITIAL ENCOUNTER (2) New onset atrial fibrillation Code(s): I48.91 - UNSPECIFIED ATRIAL FIBRILLATION (3) Pre-syncope Code(s): R55 - SYNCOPE AND COLLAPSE (4) Bronchitis after surgery Code(s): J40 - BRONCHITIS, NOT SPECIFIED ACUTE OR CHRONIC (5) Thrombocytopenia Code(s): D69.6 - THROMBOCYTOPENIA, UNSPECIFIED (6) Pneumonia Code(s): J18.9 - PNEUMONIA, UNSPECIFIED ORGANISM Assessment/Plan IMP PNEUMONIA LLL NEW ONSET A-FIB NEAR SYNCOPE S/P FALL HTN HLD THROMBOCYTOPENIA IMPROVED HYPONATREMIA improving PLAN INHALED BRONCHODILATORS REDUCE STEROIDS CONT ANTIBIOTICS NASAL O2 RATE CONTROL MONITOR PLT CT MONITOR FABIANO PONCE DR Problem List - Problems (1) Closed head injury Code(s): S09.90XA - UNSPECIFIED INJURY OF HEAD, INITIAL ENCOUNTER (2) New onset atrial fibrillation Code(s): I48.91 - UNSPECIFIED ATRIAL FIBRILLATION (3) Pre-syncope Code(s): R55 - SYNCOPE AND COLLAPSE (4) Bronchitis after surgery Code(s): J40 - BRONCHITIS, NOT SPECIFIED ACUTE OR CHRONIC (5) Thrombocytopenia Code(s): D69.6 - THROMBOCYTOPENIA, UNSPECIFIED
[2016-11-09 08:30] LABS: EOSINOPHIL 0.5 % (0-4.5); MCH 29.8 pg (25.7-33.7); MCHC 33.5 g/dl (32.0-35.9); MEAN CELL VOLUME 89.1 fl (80-96); MEAN PLT VOLUME 11.4 fl (7.5-11.1); NEUTROPHILS 90.7 % (42.8-82.8); PLATELET COUNT 135 K/MM3 (134-434); RDW 12.2 % (11.9-15.9); WHITE BLOOD COUNT 7.5 K/mm3 (4.0-10.0)
[2016-11-09 08:49] LABS: ALBUMIN 3.6 g/dl (3.5-5.0); ALK PHOS 103 U/L (32-92); ANION GAP 12 (8-16); BILIRUBIN,TOTAL 0.2 mg/dl (0.2-1.0); CALCIUM 8.1 mg/dl (8.4-10.2); CO2 19 mmol/L (22-28); CREATININE 0.8 mg/dl (0.6-1.3); GLUCOSE,RANDOM 181 mg/dl (74-106); PHOSPHOROUS 3.3 mg/dl (2.5-4.6); SGOT/AST 35 U/L (10-42); SGPT/ALT 24 U/L (10-40)
[2016-11-09] MEDS ORDERED: PT OWN MED DRAWER 7, Y5N ONE ×2 (10:02→21:36)
[2016-11-09] MEDS: BACITRACIN 30 GM TUBE TOPICAL OINTMENT TP SCH (10:07)
[2016-11-09] MEDS: METOPROLOL TARTRATE 25 MG TABLET (FP) PO SCH (10:07)
[2016-11-09] MEDS: APIXABAN 5 MG TABLET PO SCH ×2 (10:07→21:46)
[2016-11-09] MEDS: cefTRIAXone 1 GM/50 ML BAG (PRE-DOCKED) IVPB SCH (10:08)
[2016-11-09] MEDS: BUDESONIDE/FORMETEROL FUMARATE 80/4.5 mcg INHALER IH SCH ×2 (10:08→21:46)
[2016-11-09] MEDS: TIOTROPIUM BROMIDE 18 MCG/INH (DEVICE W/ 5 CAPSULES) IH SCH (10:08)
[2016-11-09] MEDS: LACTOBACILLUS ACIDOPHILUS 1 EACH TAB (FP) PO SCH (10:08)
[2016-11-09] MEDS: AZITHROMYCIN IVPB 250 MG in DEXTROSE 5%-WATER - 250 ML IVPB SCH (10:45)
--- NOTE | 2016-11-09 13:44 | PN ---
[id number] wants to go home. OBJECTIVE: patient is a 85 y/o male with a PMH of HTN and HLD, admitted for presyncope leading to fall and closed head injury, and newly diagnosed paroxysmal afib. Vital Signs Period Temp Pulse Resp BP Sys/Villalobos Pulse Ox Last 24 Hr 98.5 F-99.0 F 64-65 18-18 131-160/61-71 95-96 GENERAL: The patient is awake, alert, and fully oriented, in no acute distress. HEAD: Normal with no signs of trauma. EYES: PERRL, extraocular movements intact, sclera anicteric, conjunctiva clear. No ptosis. ENT: Ears normal, nares patent, oropharynx clear without exudates, moist mucous membranes. NECK: Trachea midline, full range of motion, supple. LUNGS: Breath sounds equal, clear to auscultation bilaterally, diminished to bases, no wheezes, no crackles, no accessory muscle use. HEART: Regular rate and rhythm, S1, S2 without murmur, rub or gallop. ABDOMEN: Soft, nontender, nondistended, normoactive bowel sounds, no guarding, no rebound, no hepatosplenomegaly, no masses. EXTREMITIES: 2+ pulses, warm, well-perfused, no edema. NEUROLOGICAL: Cranial nerves II through XII grossly intact. Normal speech, gait not observed. PSYCH: Normal mood, normal affect. SKIN: Warm, dry, normal turgor, no rashes or lesions noted Laboratory Results - last 24 hr 11/08/16 11/09/16 11/09/16 Unknown 07:00 07:00 WBC 5.6 D 7.5 D RBC 4.68 4.27 Hgb 13.5 12.7 Hct 41.7 38.1 MCV 89.0 89.1 MCHC 32.3 33.5 RDW 11.9 12.2 Plt Count 127 L D 135 MPV 11.3 H 11.4 H Neutrophils % 96.0 H 90.7 H Lymphocytes % 2.0 L D 6.0 L D Monocytes % 2.8 L Eosinophils % 0.5 Basophils % 0.0 Band Neutrophils 2.0 Sodium 135 L Potassium 3.6 Chloride 104 Carbon Dioxide 19 L Anion Gap 12 BUN 19 H Creatinine 0.8 Creat Clearance w eGFR > 60 Random Glucose 181 H Calcium 8.1 L Phosphorus 3.3 D Magnesium 2.0 Total Bilirubin 0.2 D AST 35 ALT 24 D Alkaline Phosphatase 103 H Total Protein 6.0 L Albumin 3.6 Active Medications Generic Name Dose Route Start Last Admin Trade Name Freq PRN Reason Stop Dose Admin Albuterol Sulfate 1 amp 11/07/16 10:04 11/09/16 06:15 Ventolin 0.083% Nebulizer Soln - NEB 1 amp Q4H PRN Administration WHEEZING Apixaban 5 mg 11/07/16 22:00 11/09/16 10:07 Eliquis - PO 5 mg BID MARY Administration Atorvastatin Calcium 20 mg 11/05/16 22:00 11/08/16 21:57 Lipitor - PO 20 mg HS MARY Administration Bacitracin 1 applic 11/05/16 15:00 11/09/16 10:07 Bacitracin - TP 1 applic DAILY MARY Administration Budesonide/Formoterol Fumarate 2 puff 11/07/16 12:00 11/09/16 10:08 Symbicort 80/4.5mcg - IH 2 puff BID MARY Administration Ceftriaxone Sodium 1 gm 11/07/16 14:30 11/09/16 10:08 Rocephin 1gm Ivpb (Pre-Docked) IVPB 1 gm DAILY MARY Administration Azithromycin 250 mg/ Dextrose 250 mls @ 250 mls/hr 11/08/16 10:00 11/09/16 10: 45 IVPB 11/11/16 10:00 250 mls/hr DAILY MARY Administration Lactobacillus Acidophilus 1 tab 11/07/16 13:45 11/09/16 10:08 Bacid - PO 1 tab DAILY MARY Administration Methylprednisolone Sodium Succinate 40 mg 11/10/16 10:00 Solu-Medrol - IVPB DAILY MARY Metoprolol Tartrate 25 mg 11/06/16 10:00 11/09/16 10:07 Lopressor - PO 25 mg DAILY MARY Administration Tamsulosin HCl 0.4 mg 11/10/16 08:30 Flomax - PO DAILY@0830 MARY Tiotropium [place] 1 puff 11/07/16 10:30 11/09/16 10:08 Spiriva - IH 1 puff DAILY MARY Administration Microbiology 11/06/16 15:00 Blood - Peripheral Venous Blood Culture - Preliminary NO GROWTH OBTAINED AFTER 48 HOURS, INCUBATION TO CONTINUE FOR 3 DAYS. 11/06/16 15:30 Blood - Peripheral Venous Blood Culture - Preliminary NO GROWTH OBTAINED AFTER 48 HOURS, INCUBATION TO CONTINUE FOR 3 DAYS. 11/06/16 14:45 Blood - Peripheral Venous Blood Culture - Preliminary NO GROWTH OBTAINED AFTER 48 HOURS, INCUBATION TO CONTINUE FOR 3 DAYS. 11/06/16 14:00 Urine - Urine Clean Catch Urine Culture - Final Contaminated: Please Repeat 11/05/16 16:30 Nasopharyngeal Swab Respiratory Virus Panel - Preliminary 11/05/16 16:30 Nasopharyngeal Swab Influenza Types A,B Antigen (KELSEY) - Final , negative 11/05/16 16:30 Nasopharyngeal Swab - Final IMAGING CT of head, no acute pathology cxr no infilitrate no effusion noted CT chest without contrast, small patchy infiltrate to posterior left lower lobe and left upper lobe PNA, 4.2cm ascending thoracic aneurysm ECHO,LV WNL moderate to severe aortic sclerosis, trace PVR hypertension ASSESSMENT/PLAN: 1) card: paroxysmal atrial fibrillation - pt is now in NSR - case discussed with Dr Bal (PCP), as per Dr Bal, patient is at low risk for falls, start eliquis - continue lopressor, b/p at goal hyperlipidemia - continue statin thoracic aneurysm - 4.2cm thoraci aneurysm noted on ct, close monitoring, keep b/p at goal cardiology consulted and following 2) Pulm - decrease solumedrol QD - continue prn albuterol nebulizers, spiriva, symbicort community acquired pneumonia continue zithromax and rocephin - pulmonary consulted and following F/E/N hyponatremia resolved regular diet DVT prophylaxis: eliquis oob, ambulation Dispo: continues to require inpatient telemetry care. Full Code. Visit type - Emergency Visit Emergency Visit: Yes ED Registration Date: 11/05/16 Care time: The patient presented to the Emergency Department on the above date and was hospitalized for further evaluation of their emergent condition. - New Patient This patient is new to me today: No - Critical Care Critical Care patient: No - Discharge Referral Referred to [facility] Med P.C.: No
[2016-11-09] MEDS: ATORVASTATIN CA 20 MG TABLET (FP) PO SCH (21:45)
--- NOTE | 2016-11-10 07:52 | PN ---
Progress Note, Physician History of Present Illness: pulmonary alert,mildly confused,less congested,oob-chair - Current Medication List Current Medications: Active Medications Albuterol Sulfate (Ventolin 0.083% Nebulizer Soln -) 1 amp NEB Q4H PRN PRN Reason: WHEEZING Last Admin: 11/09/16 06:15 Dose: 1 amp Apixaban (Eliquis -) 5 mg PO BID [facility] Last Admin: 11/09/16 21:46 Dose: 5 mg Atorvastatin Calcium (Lipitor -) 20 mg PO HS [facility] Last Admin: 11/09/16 21:45 Dose: 20 mg Bacitracin (Bacitracin -) 1 applic TP DAILY [facility] Last Admin: 11/09/16 10:07 Dose: 1 applic Budesonide/Formoterol Fumarate (Symbicort 80/4.5mcg -) 2 puff IH BID [facility] Last Admin: 11/09/16 21:46 Dose: 2 puff Ceftriaxone Sodium (Rocephin 1gm Ivpb (Pre-Docked)) 1 gm IVPB DAILY [facility] Last Admin: 11/09/16 10:08 Dose: 1 gm Azithromycin 250 mg/ Dextrose 250 mls @ 250 mls/hr IVPB DAILY [facility] Stop: 11/11/16 10:00 Last Admin: 11/09/16 10:45 Dose: 250 mls/hr Lactobacillus Acidophilus (Bacid -) 1 tab PO DAILY [facility] Last Admin: 11/09/16 10:08 Dose: 1 tab Methylprednisolone Sodium Succinate (Solu-Medrol -) 40 mg IVPB DAILY [facility] Metoprolol Tartrate (Lopressor -) 25 mg PO DAILY [facility] Last Admin: 11/09/16 10:07 Dose: 25 mg Tamsulosin HCl (Flomax -) 0.4 mg PO DAILY@0830 [facility] Tiotropium [place] (Spiriva -) 1 puff IH DAILY [facility] Last Admin: 11/09/16 10:08 Dose: 1 puff - Objective Vital Signs: Vital Signs Temperature 97.9 F 11/10/16 05:53 Pulse Rate 71 11/10/16 05:53 Respiratory Rate 18 11/10/16 05:53 Blood Pressure 174/83 11/10/16 05:53 O2 Sat by Pulse Oximetry (%) 98 11/10/16 05:53 Constitutional: Yes: Calm, Thin Eyes: Yes: WNL HENT: Yes: WNL Neck: Yes: WNL Cardiovascular: Yes: Pulse Irregular, S1, S2 Respiratory: Yes: Rales (bibasilar crackles l>r), Wheezes (few wheezes) Gastrointestinal: Yes: Normal Bowel Sounds, Soft Extremities: Yes: WNL Edema: No Labs: CBC, BMP Problem List - Problems (1) Closed head injury Code(s): S09.90XA - UNSPECIFIED INJURY OF HEAD, INITIAL ENCOUNTER (2) New onset atrial fibrillation Code(s): I48.91 - UNSPECIFIED ATRIAL FIBRILLATION (3) Pre-syncope Code(s): R55 - SYNCOPE AND COLLAPSE (4) Bronchitis after surgery Code(s): J40 - BRONCHITIS, NOT SPECIFIED ACUTE OR CHRONIC (5) Thrombocytopenia Code(s): D69.6 - THROMBOCYTOPENIA, UNSPECIFIED (6) Pneumonia Code(s): J18.9 - PNEUMONIA, UNSPECIFIED ORGANISM Assessment/Plan IMP PNEUMONIA LLL NEW ONSET A-FIB NEAR SYNCOPE S/P FALL HTN HLD THROMBOCYTOPENIA IMPROVED HYPONATREMIA improving PLAN INHALED BRONCHODILATORS STEROIDS SAME DOSE CONT ANTIBIOTICS NASAL O2 RATE CONTROL MONITOR FABIANO PONCE DR Problem List - Problems (1) Closed head injury Code(s): S09.90XA - UNSPECIFIED INJURY OF HEAD, INITIAL ENCOUNTER (2) New onset atrial fibrillation Code(s): I48.91 - UNSPECIFIED ATRIAL FIBRILLATION (3) Pre-syncope Code(s): R55 - SYNCOPE AND COLLAPSE (4) Bronchitis after surgery Code(s): J40 - BRONCHITIS, NOT SPECIFIED ACUTE OR CHRONIC (5) Thrombocytopenia Code(s): D69.6 - THROMBOCYTOPENIA, UNSPECIFIED
[2016-11-10] MEDS ORDERED: TAMSULOSIN HCL 0.4 MG CAP.ER.24H (FP) PO SCH (08:30)
--- NOTE | 2016-11-10 09:20 | DS ---
Physical Exam: SUBJECTIVE: Patient seen and examined, patient reports feeling well, wants to go home, denies any chest pain or shortness of breath. OBJECTIVE: patient is an 85 year old male with a past medical history of HTN, HLD who presented to the ED s/p fall this AM. Pt states that while he was walking around his house he suddenly felt dizzy and fell backwards and to the left, hitting his head on a wooden step sustaining a scalp laceration. He denies LOC. He states that prior to the episode of dizziness he felt fine but does report a cough x 4 days. Denies fever, CP, SOB, palpitations, abdominal pain, N/V/D. ER course was notable for: (1) ECG with atrial fibrillation (2) troponin negative x 1. (3) CT head with no acute disease Vital Signs Period Temp Pulse Resp BP Sys/Villalobos Pulse Ox Last 24 Hr 97.5 F-98.5 F 59-75 18-18 139-174/58-83 96-98 PHYSICAL EXAM GENERAL: The patient is awake, alert, and fully oriented, in no acute distress. HEAD: Normal with no signs of trauma. EYES: PERRL, extraocular movements intact, sclera anicteric, conjunctiva clear. No ptosis. ENT: Ears normal, nares patent, oropharynx clear without exudates, moist mucous membranes. NECK: Trachea midline, full range of motion, supple. LUNGS: Breath sounds equal, clear to auscultation bilaterally, diminished to bases, no wheezes, no crackles, no accessory muscle use. HEART: Regular rate and rhythm, S1, S2 without murmur, rub or gallop. ABDOMEN: Soft, nontender, nondistended, normoactive bowel sounds, no guarding, no rebound, no hepatosplenomegaly, no masses. EXTREMITIES: 2+ pulses, warm, well-perfused, no edema. NEUROLOGICAL: Cranial nerves II through XII grossly intact. Normal speech, gait not observed. PSYCH: Normal mood, normal affect. SKIN: Warm, dry, normal turgor, no rashes or lesions noted LABS CBC WBC 7.5 K/mm3 (4.0-10.0) D 11/09/16 07:00 Corrected WBC (auto) 4.00 K/mm3 11/06/16 05:00 RBC 4.27 M/mm3 (4.00-5.60) 11/09/16 07:00 Hgb 12.7 GM/dl (11.7-16.9) 11/09/16 07:00 Hct 38.1 % (35.4-49) 11/09/16 07:00 MCV 89.1 fl (80-96) 11/09/16 07:00 MCHC 33.5 g/dl (32.0-35.9) 11/09/16 07:00 RDW 12.2 % (11.9-15.9) 11/09/16 07:00 Plt Count 135 K/MM3 (134-434) 11/09/16 07:00 MPV 11.4 fl (7.5-11.1) H 11/09/16 07:00 Neutrophils % 90.7 % (42.8-82.8) H 11/09/16 07:00 Lymphocytes % 6.0 % (8-40) L D 11/09/16 07:00 Monocytes % 2.8 % (3.8-10.2) L 11/09/16 07:00 Eosinophils % 0.5 % (0-4.5) 11/09/16 07:00 Basophils % 0.0 % (0-2.0) 11/09/16 07:00 Band Neutrophils 2.0 % (0-10) 11/08/16 Unknown CMP Sodium 135 mmol/L (136-145) L 11/09/16 07:00 Potassium 3.6 mmol/L (3.5-5.1) 11/09/16 07:00 Chloride 104 mmol/L (98-107) 11/09/16 07:00 Carbon Dioxide 19 mmol/L (22-28) L 11/09/16 07:00 Anion Gap 12 (8-16) 11/09/16 07:00 BUN 19 mg/dl (7-18) H 11/09/16 07:00 Creatinine 0.8 mg/dl (0.6-1.3) 11/09/16 07:00 Creat Clearance w eGFR > 60 (>60) 11/09/16 07:00 Random Glucose 181 mg/dl (74-106) H 11/09/16 07:00 Calcium 8.1 mg/dl (8.4-10.2) L 11/09/16 07:00 Phosphorus 3.3 mg/dl (2.5-4.6) D 11/09/16 07:00 Magnesium 2.0 mg/dL (1.8-2.4) 11/09/16 07:00 Total Bilirubin 0.2 mg/dl (0.2-1.0) D 11/09/16 07:00 AST 35 U/L (10-42) 11/09/16 07:00 ALT 24 U/L (10-40) D 11/09/16 07:00 Alkaline Phosphatase 103 U/L (32-92) H 11/09/16 07:00 Creatine Kinase 82 IU/L (39-308) 11/06/16 05:00 Troponin I < 0.02 ng/ml (0.00-0.05) 11/06/16 05:00 Total Protein 6.0 g/dl (6.4-8.3) L 11/09/16 07:00 Albumin 3.6 g/dl (3.5-5.0) 11/09/16 07:00 TSH 2.68 uIU/ml (0.358-3.74) 11/05/16 12:00 Microbiology 11/08/16 16:00 Urine - Urine Clean Catch Urine Culture - Final NO GROWTH OBTAINED 11/06/16 15:00 Blood - Peripheral Venous Blood Culture - Preliminary NO GROWTH OBTAINED AFTER 72 HOURS, INCUBATION TO CONTINUE FOR 2 DAYS. 11/06/16 15:30 Blood - Peripheral Venous Blood Culture - Preliminary NO GROWTH OBTAINED AFTER 72 HOURS, INCUBATION TO CONTINUE FOR 2 DAYS. 11/06/16 14:45 Blood - Peripheral Venous Blood Culture - Preliminary NO GROWTH OBTAINED AFTER 72 HOURS, INCUBATION TO CONTINUE FOR 2 DAYS. 11/06/16 14:00 Urine - Urine Clean Catch Urine Culture - Final Contaminated: Please Repeat 11/05/16 16:30 Nasopharyngeal Swab Respiratory Virus Panel - Preliminary 11/05/16 16:30 Nasopharyngeal Swab Influenza Types A,B Antigen ([facility]) - Final , negative IMAGING -CT of head, no acute pathology -cxr no infilitrate no effusion noted -CT chest without contrast, small patchy infiltrate to posterior left lower lobe and left upper lobe PNA, 4.2cm ascending thoracic aneurysm -ECHO,LV WNL moderate to severe aortic sclerosis, trace PVR hypertension HOSPITAL COURSE: patient was admitted from the emergency department for paroxysmal atrial fibrillation, s/p fall. patient's norvasc was discontinued and lopressor was started. Case discussed with Dr Bal (PCP), as per Dr Bal, patient is at low risk for falls, patient was started on eliquis. patient converted to NSR. lopressor was continued and b/p remained at goal. He has a pmh of hyperlipidemia. Statin was continued . Incidental finding was noted on ct scan of a 4.2cm thoracic aneurysm. He will require close monitoring and strict blood pressure control. patient and was made aware of finding. cardiology, Dr Krueger was consulted and followed. Patient was treated for community acquired pneumonia with rocephin and zithromax. He was placed on solumedrol and tapered to prednisone for wheezing. In addition, he was placed on prn albuterol nebulizers, spiriva, symbicort. Pulmonary, Dr García was consulted and followed. PLAN: - strict follow up with Dr Krueger, within 2 weeks - continue taking lopressor - prednisione taper, continue symbicort with prn albuterol Date of Admission:11/05/16 Date of Discharge: 11/10/16 Minutes to complete discharge: 45 Discharge Summary Reason For Visit: NEW ONSET AFIB Current Active Problems Bronchitis after surgery (Acute) Closed head injury (Acute) New onset atrial fibrillation (Acute) Pneumonia (Acute) Pre-syncope (Acute) Thrombocytopenia (Acute) Condition: Stable - Instructions Referrals: Arnoldo Bal MD [Primary Care Provider] - - Home Medications Comprehensive Discharge Medication List: Ambulatory Orders Amlodipine Besylate [Norvasc -] 10 mg PO DAILY 10/18/12 Simvastatin [Zocor] 40 mg PO DAILY 10/18/12 Aspirin [Aspirin EC] 81 mg PO Q48H 11/05/16 This patient is new to me today: No Emergency Visit: Yes ED Registration Date: 11/05/16 Care time: The patient presented to the Emergency Department on the above date and was hospitalized for further evaluation of their emergent condition. Critical Care patient: No - Discharge Referral Referred to [facility] Med P.C.: No
[2016-11-10] MEDS ORDERED: PT OWN MED DRAWER 7, Y5N ONE (09:37)
[2016-11-10 09:40] VITALS: TEMP 98
[2016-11-10] MEDS: cefTRIAXone 1 GM/50 ML BAG (PRE-DOCKED) IVPB SCH (09:40)
[2016-11-10] MEDS: LACTOBACILLUS ACIDOPHILUS 1 EACH TAB (FP) PO SCH (09:41)
[2016-11-10] MEDS: APIXABAN 5 MG TABLET PO SCH (09:41)
[2016-11-10] MEDS: METOPROLOL TARTRATE 25 MG TABLET (FP) PO SCH (09:41)
[2016-11-10] MEDS: TIOTROPIUM BROMIDE 18 MCG/INH (DEVICE W/ 5 CAPSULES) IH SCH (09:42)
[2016-11-10] MEDS: BUDESONIDE/FORMETEROL FUMARATE 80/4.5 mcg INHALER IH SCH (09:42)
[2016-11-10] MEDS: BACITRACIN 30 GM TUBE TOPICAL OINTMENT TP SCH (09:42)
[2016-11-10] MEDS: AZITHROMYCIN IVPB 250 MG in DEXTROSE 5%-WATER - 250 ML IVPB SCH (09:43)
[2016-11-10] MEDS ORDERED: methylPREDNISolone NA SUCC 40 MG/1 ML VIAL IVPB SCH (10:00)
--- NOTE | 2016-11-10 12:12 | CONS ---
PULMONARY CONSULTATION DATE OF CONSULTATION: DATE OF DICTATION: 11/07/2016 REFERRING PHYSICIAN: Crissy Lewis NP HISTORY OF PRESENT ILLNESS: The patient is an 85-year-old white male with past medical history of hypertension, hyperlipidemia, history of tobacco use (quit years ago). Admitted to [facility] on 11/05 with complaints of lightheadedness and fall earlier the day of admission. Patient apparently was walking in his house when he suddenly felt lightheaded and fell backwards, hit his head on a small step between the rooms. He did not lose consciousness. Denied any complaint of chest pain or palpitations. He presented to the emergency room with the above. In the ER he was noted to be in atrial fibrillation. He has also noticed complaints for the past week or so of cough, which is nonproductive. He denies any shortness of breath, chest pain or palpitations. Denies any recent URI symptoms. Upon admission, he was evaluated by Dr. Avelar for a cardiology consultation. Patient denies any history of COPD or asthma in the past. He denies any recent travel. 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 He was born in [place] and moved to the [place] in the late 1960s. He denies any hemoptysis. PAST MEDICAL HISTORY: Past medical history again includes hypertension, hyperlipidemia. REVIEW OF SYSTEMS: Positive for cough. Positive mild congestion. Positive lightheadedness status post fall. No chest pain, no palpitations, no nausea, no vomiting. CURRENT MEDICATIONS: 1. Bacitracin 2. Magnesium sulfate 3. Albuterol 4. DuoNeb 5. Lopressor 6. Lipitor 7. Ecotrin PHYSICAL EXAMINATION: General: The patient is an elderly white male, well-developed, awake, alert, no acute distress. Vital signs: He is currently afebrile. Temperature is 99.5. Respiratory rate is 20. O2 saturation is 92% on room air. HEENT exam: Normocephalic, atraumatic. Neck is supple. Heart: Irregular and S1, S2. Lungs: Rhonchi noted on the right. Abdomen: Soft. Bowel sounds are positive. Extremities: No sign of edema. LABS: WBC is 4.1, hemoglobin 12.5, hematocrit 37.7, platelet count of 199,000. INR is 1.13. BUN is 12. Creatinine is 0.9. Troponin is 0.02. Magnesium is level of 1.5. RADIOGRAPHIC FINDINGS: Head CT: No evidence of acute intracranial process. Chest x-ray: Reveals poor inspiratory effort but no acute infiltrates or effusions. IMPRESSION: 1. Near syncope 2. New onset atrial fibrillation 3. Chest congestion/cough, most likely secondary to bronchitis 4. Other mild underlying chronic obstructive pulmonary disease secondary to history of tobacco use 5. Hypertension 6. Hyperlipidemia PLAN: 1. Inhaled bronchodilators 2. Supplemental O2 3. Short course of intravenous steroids 4. CT scan of the chest 5. Rate control as per cardiology 6. Pulmonary function tests as outpatient Lisbet CASTILLO/[id number] cc: Walter Avelar MD, cardiology
[2016-11-10 14:12] VITALS: BP 140/56; PULSE 56
== END 2016-11-10 17:25 | disposition home or self-care (01) | DRG 913 ==
LOC: FER 11:35 → FM/S 13:07
PROVIDERS: ADMIT Family Medicine; ATTEND Nurse Practitioner Family
DX: S09.90XA Unspecified injury of head, initial encounter (principal); J18.9 Pneumonia, unspecified organism; E87.1 Hypo-osmolality and hyponatremia; D69.6 Thrombocytopenia, unspecified; R55 Syncope and collapse; I10 Essential (primary) hypertension; E78.5 Hyperlipidemia, unspecified; Y93.9 Activity, unspecified; W19.XXXA Unspecified fall, initial encounter; I48.0 Paroxysmal atrial fibrillation; Y92.89 Other specified places as the place of occurrence of the external cause; Y99.9 Unspecified external cause status; J44.9 Chronic obstructive pulmonary disease, unspecified; Z87.891 Personal history of nicotine dependence; R42 Dizziness and giddiness; J40 Bronchitis, not specified as acute or chronic
CPT/HCPCS: 36415; 70450-TC; 71020-TC; 71250-TC; 80048; 80053; 81003; 82550; 83735; 84100; 84443; 84484; 85025; 85610; 87040; 87086; 87254; 87804; 93005; 93306-TC; 94010; 94640; 97116-GP; 97161-GP; 99285-25

== ENCOUNTER 2017-06-23 12:19 | Inpatient (IN) | payer OTHER, BC ==
--- NOTE | 2017-06-23 12:30 | PDOC ---
History of Present Illness - General Chief Complaint: Syncope/Near Syncope Stated Complaint: SYNCOPE/NEAR SYNCOPE Time Seen by Provider: 06/23/17 12:27 - History of Present Illness Initial Comments: 06/23/17 12:29 Mr. Lan is an 86 yo male with a significant past medical history of HTN, HLD, and afib on eloquist who presents to the emergency department following an episode of feeling dizzy and possibly losing consciousness shortly this AM. He was sitting at the time and denies any trauma or pain. Per he felt better shortly after. The patient denies chest pain, shortness of breath, headache and dizziness. Denies fever, chills, nausea, vomit, diarrhea and constipation. Denies dysuria, frequency, urgency and hematuria. Allergies: NKDA Past History - Past Medical History Allergies/Adverse Reactions: Allergies Allergy/AdvReac Type Severity Reaction Status Date / Time No Known Allergies Allergy Verified 06/23/17 12:29 Home Medications: Ambulatory Orders Albuterol Sulfate Inhaler - [Ventolin HFA Inhaler -] 2 inh PO Q4H #1 inh Apixaban [Eliquis -] 5 mg PO BID #60 tablet 11/10/16 Budesonide/Formeterol Fumarate [SYMBICORT 80/4.5mcg -] 2 puff IH BID #1 inhaler 11/10/16 Metoprolol Tartrate [Lopressor -] 25 mg PO DAILY #30 tablet 11/10/16 Tiotropium [place] [Spiriva] 1 puff IH DAILY #1 inh 11/10/16 Rosuvastatin Calcium [Crestor] 0 mg PO DAILY 06/23/17 Anemia: No Asthma: No Cancer: No Cardiac Disorders: No CVA: No COPD: No CHF: No Dementia: No Diabetes: No GI Disorders: No Disorders: No HTN: Yes Hypercholesterolemia: Yes Liver Disease: No Seizures: No Thyroid Disease: No - Surgical History Abdominal Surgery: No Appendectomy: No Cardiac Surgery: No Cholecystectomy: No Lung Surgery: No Neurologic Surgery: No Orthopedic Surgery: Yes (Left Shoulder Arthroscopy,Bilateral Shoulder Arthroscopy) - Psycho/Social/Smoking Cessation Hx Anxiety: No Suicidal Ideation: No Smoking History: Former smoker Have you smoked in the past 12 months: No If you are a former smoker, when did you quit?: 1977 Hx Alcohol Use: Yes (occasional) Drug/Substance Use Hx: No Substance Use Type: None Hx Substance Use Treatment: No Review of Systems - Review of Systems Comments:: 06/23/17 12:29 GENERAL/CONSTITUTIONAL: No fever or chills. No weakness. HEAD, EYES, EARS, NOSE AND THROAT: No change in vision. No ear pain or discharge. No sore throat. CARDIOVASCULAR: No chest pain or shortness of breath RESPIRATORY: No cough, wheezing, or hemoptysis. GASTROINTESTINAL: No nausea, vomiting, diarrhea or constipation. GENITOURINARY: No dysuria, frequency, or change in urination. MUSCULOSKELETAL: No joint or muscle swelling or pain. No neck or back pain. SKIN: No rash NEUROLOGIC: No headache, vertigo, loss of consciousness, or change in strength/ sensation. ENDOCRINE: No increased thirst. No abnormal weight change HEMATOLOGIC/LYMPHATIC: No anemia, easy bleeding, or history of blood clots. ALLERGIC/IMMUNOLOGIC: No hives or skin allergy. *Physical Exam - Physical Exam Comments: 06/23/17 12:29 GENERAL: Awake, alert, and fully oriented, in no acute distress HEAD: No signs of trauma, normocephalic, atraumatic EYES: PERRLA, EOMI, sclera anicteric, conjunctiva clear ENT: Auricles normal inspection, hearing grossly normal, nares patent, oropharynx clear without exudates. Moist mucosa NECK: Normal ROM, supple, no lymphadenopathy, JVD, or masses LUNGS: No distress, speaks full sentences, clear to auscultation bilaterally HEART: Regular rate and rhythm, normal S1 and S2, no murmurs, rubs or gallops, peripheral pulses normal and equal bilaterally. ABDOMEN: Soft, nontender, normoactive bowel sounds. No guarding, no rebound. No masses EXTREMITIES: Normal inspection, Normal range of motion, no edema. No clubbing or cyanosis. NEUROLOGICAL: Cranial nerves II through XII grossly intact. Normal speech, normal gait, no focal sensorimotor deficits SKIN: Warm, Dry, normal turgor, no rashes or lesions noted. ED Treatment Course - LABORATORY CBC & Chemistry Diagram: 06/23/17 12:51 06/23/17 12:51 Medical Decision Making - Medical Decision Making 06/23/17 15:26 Patient evaluated for syncopal episode while sitting. History of afib diagnosed after last similar episode in October. Patient denies hitting head or any trauma. UTI noted via labs, will admit for obs overnight. *DC/Admit/Observation/Transfer Diagnosis at time of Disposition: Syncopal episodes Qualifiers: Syncope type: unspecified Qualified Code(s): R55 - Syncope and collapse - Discharge Dispostion Admit: Yes
[2017-06-23] MEDS ORDERED: SODIUM CHLORIDE 1,000 ML IV STA (12:50)
[2017-06-23 13:34] LABS: URINE APPEARANCE SLCLOUDY; URINE BILIRUBIN NEGATIVE (NEGATIVE); URINE BLOOD 2+ (NEGATIVE); URINE COLOR AMBER; URINE GLUCOSE (UA) NEGATIVE (NEGATIVE); URINE KETONE TRACE (NEGATIVE); URINE LEUK ESTERASE TRACE (NEGATIVE); URINE NITRITE NEGATIVE (NEGATIVE)
[2017-06-23 13:35] LABS: URINE PROTEIN 1+ (NEGATIVE)
[2017-06-23 13:38] LABS: BASOPHIL 0.6 % (0-2.0); EOSINOPHIL 0.7 % (0-4.5); MCH 30.2 pg (25.7-33.7); MCHC 33.7 g/dl (32.0-35.9); MEAN CELL VOLUME 89.7 fl (80-96); MEAN PLT VOLUME 10.5 fl (7.5-11.1); NEUTROPHILS 67.2 % (42.8-82.8); PLATELET COUNT 154 K/MM3 (134-434); RDW 13.6 % (11.9-15.9); WHITE BLOOD COUNT 6.7 K/mm3 (4.0-10.0)
[2017-06-23 13:39] LABS: GRANULAR CASTS 2 /lpf; URINE HYALINE CAST 57 /lpf; URINE MUCUS MANY; URINE RBC 51 /hpf (0-3); URINE WBC 17 /hpf (3-5)
[2017-06-23 13:58] LABS: ALBUMIN 3.9 g/dl (3.4-5.0); ANION GAP 10 (8-16); BILIRUBIN,TOTAL 0.8 mg/dL (0.2-1.0); CALCIUM 8.7 mg/dL (8.5-10.1); CO2 29 mmol/L (21-32); CREATININE 1.2 mg/dL (0.7-1.3); GLUCOSE,RANDOM 116 mg/dL (74-106); SGOT/AST 16 U/L (15-37); SGPT/ALT 23 U/L (12-78); TOT PROT 6.3 g/dl (6.4-8.2)
[2017-06-23 14:00] LABS: ALK PHOS 136 U/L (45-117); CPK 78 IU/L (39-308); TROPONIN I < 0.02 ng/ml (0.00-0.05)
--- NOTE | 2017-06-23 14:32 | PDOC ---
Attending Attestation - Resident Resident Name: Jassi Silva - ED Attending Attestation I have performed the following: I have examined & evaluated the patient, The case was reviewed & discussed with the resident, I agree w/resident's findings & plan, Exceptions are as noted - HPI HPI: 06/23/17 14:32 86 M with h/o HTN, HLD, afib on eliquis, presents to ER with syncopal episode. Pt was seated with his when witnessed pt's eyes rolling back. Pt became unresponsive and slumped over but did not fall. Pt's states he was unresponsive for about 10 seconds before he regained consciousness. Pt denies any CP/SOB/palpitations. Denies any symptoms currently. No F/C. No abdominal pain. No N/V/D. Pt has had one prior syncopal episode in the past when he was diagnosed with afib and also found to have PNA. - Physicial Exam PE: 06/23/17 14:38 "GENERAL: Awake, alert, and fully oriented, in no acute distress HEAD: No signs of trauma EYES: PERRLA, EOMI, sclera anicteric, conjunctiva clear ENT: Auricles normal inspection, hearing grossly normal, nares patent, oropharynx clear without exudates. Moist mucosa NECK: Normal ROM, supple, no lymphadenopathy, JVD, or masses LUNGS: Breath sounds equal, clear to auscultation bilaterally. No wheezes, and no crackles HEART: Regular rate and rhythm, normal S1 and S2, no murmurs, rubs or gallops ABDOMEN: Soft, nontender, normoactive bowel sounds. No guarding, no rebound. No masses EXTREMITIES: Normal range of motion, no edema. No clubbing or cyanosis. No cords, erythema, or tenderness NEUROLOGICAL: Cranial nerves II through XII intact. 5/5 strength and sensation in all extremities. Cerebellar function normal. SKIN: Warm, Dry, normal turgor, no rashes or lesions noted. " - Medical Decision Making 06/23/17 14:39 86 M with syncopal episode. Concerning for possible cardiac syncope as pt was seated at the time. EKG with rate controlled afib. Pt with nonfocal neuro exam, making primary neuro process unlikely. Willl also evaluate for infectious process. - Labs, trop - CXR, UA - Admit tele Heart Score/ECG Review - ECG Impressions Comment:: 06/23/17 14:38 atrial fibrillation, rate 65. no HERMELINDA/STDs, no TWIs.
[2017-06-23] MEDS ORDERED: cefTRIAXone SODIUM 1 GM VIAL IM ONE (15:41)
--- NOTE | 2017-06-23 15:59 | HP ---
CHIEF COMPLAINT: PCP: HISTORY OF PRESENT ILLNESS: Mr. Lan is an 86 year old male with a significant past medical history of hypertension, hld, New onset afib (on Eliquis/afib diagnosed 10/2016) who presents to the emergency department today following an episode of feeling dizzy and possibly losing consciousness shortly this morning. It was reported that patient was seated with his when witnessed pt's eyes rolling back. Pt became unresponsive and slumped over but did not fall. Pt's states he was unresponsive for about 10 seconds before he regained consciousness. He does not recall the event but does report episodes of dizziness. He denies chest pain or shortness of breath. Ambulates with a walker at home. He was sitting at the time and denies any trauma or pain. He denies hitting his head. As per and daughter, he felt better shortly thereafter. The patient denies chest pain, shortness of breath, headache and dizziness. He further denies fever, chills, nausea, vomit, diarrhea and constipation. ER course was notable for: (1) Trop negative x 1, continue to trend (2) Chest xray, moderate enlargement of cardiac silhouette, clear lungs, no acute lung disease (3) Ceftriaxone in ER Recent Travel: denies PAST MEDICAL HISTORY: HTN HLD PAST SURGICAL HISTORY: right shoulder arthroscopy bilat knee arthroscopy Social History: Smoking: quit 1977 Alcohol: occ glass of wine Drugs: pt denies Family History: mother age 84, [place] father age 70, lung CA brother alive, CAD, s/p CABG brother s/p colon CA 4 other brothers and one sister alive and well son with HTN, ministroke HOME MEDICATIONS: Home Medications Medication Instructions Recorded Albuterol Sulfate Inhaler - 2 inh PO Q4H #1 inh 11/10/16 [Ventolin HFA Inhaler -] Apixaban [Eliquis -] 5 mg PO BID #60 tablet 11/10/16 Budesonide/Formeterol Fumarate 2 puff IH BID #1 inhaler 11/10/16 [SYMBICORT 80/4.5mcg -] Metoprolol Tartrate [Lopressor -] 25 mg PO DAILY #30 tablet 11/10/16 Tiotropium [place] [Spiriva] 1 puff IH DAILY #1 inh 11/10/16 Rosuvastatin Calcium [Crestor] 0 mg PO DAILY 06/23/17 REVIEW OF SYSTEMS CONSTITUTIONAL: Absent: fever, chills, diaphoresis, generalized weakness, malaise, loss of appetite, weight change HEENT: Absent: rhinorrhea, nasal congestion, throat pain, throat swelling, difficulty swallowing, mouth swelling, ear pain, eye pain, visual changes CARDIOVASCULAR: Absent: chest pain, syncope, palpitations, irregular heart rate, lightheadedness , peripheral edema RESPIRATORY: Absent: cough, shortness of breath, dyspnea with exertion, orthopnea, wheezing, stridor, hemoptysis GASTROINTESTINAL: Absent: abdominal pain, abdominal distension, nausea, vomiting, diarrhea, constipation, melena, hematochezia GENITOURINARY: Absent: dysuria, frequency, urgency, hesitancy, hematuria, flank pain, genital pain MUSCULOSKELETAL: Absent: myalgia, arthralgia, joint swelling, back pain, neck pain SKIN: Absent: rash, itching, pallor HEMATOLOGIC/IMMUNOLOGIC: Absent: easy bleeding, easy bruising, lymphadenopathy, frequent infections ENDOCRINE: Absent: unexplained weight gain, unexplained weight loss, heat intolerance, cold intolerance NEUROLOGIC: Absent: headache, focal weakness or paresthesias, dizziness, unsteady gait, seizure, mental status changes, bladder or bowel incontinence PSYCHIATRIC: Absent: anxiety, depression, suicidal or homicidal ideation, hallucinations. PHYSICAL EXAMINATION GENERAL: Awake, alert, and fully oriented, in no acute distress. HEAD: Normal with no signs of trauma. EYES: Pupils equal, round and reactive to light, extraocular movements intact, sclera anicteric, conjunctiva clear. No lid lag. EARS, NOSE, THROAT: Ears normal, nares patent, oropharynx clear without exudates. Moist mucous membranes. NECK: Normal range of motion, supple without lymphadenopathy, JVD, or masses. LUNGS: Diminished but clear breath sounds, no wheezing or accessory muscle use. HEART: Atrial fib 104s ABDOMEN: Soft, nontender, not distended, normoactive bowel sounds, no guarding, no rebound, no masses. No hepatomegaly or splenomegaly. MUSCULOSKELETAL: Normal range of motion at all joints. No bony deformities or tenderness. No CVA tenderness. UPPER EXTREMITIES: 2+ pulses, warm, well-perfused. No cyanosis. No clubbing. No peripheral edema. LOWER EXTREMITIES: 2+ pulses, warm, well-perfused. No calf tenderness. No peripheral edema. NEUROLOGICAL: Normal speech. Normal gait. PSYCHIATRIC: Cooperative. Good eye contact. Appropriate mood and affect. SKIN: Warm, dry, normal turgor, no rashes or lesions noted, normal capillary refill. ASSESSMENT/PLAN: Mr. Lan is an 86 year old male with a significant past medical history of hypertension, hld, New onset afib (on Eliquis) who presents to the emergency department today following an episode of feeling dizzy and possibly losing consciousness shortly this morning. He was sitting at the time and denies any trauma or pain. He denies hitting his head. As per and daughter, he felt better shortly thereafter. The patient denies chest pain, shortness of breath, headache and dizziness. He further denies fever, chills, nausea, vomit, diarrhea and constipation. Imaging: CXR 06/23/2017: No acute pathology. Clear lungs, moderate enlargement of cardiac silhouette Cardiology: Pre-syncope, denies any head trauma, states he lowered himself to floor A/P: Monitor on tele to rule out pauses No head injury, mental status at baseline as per family No signs of trauma on physical exam Troponins negative x 1, trend 2 more Orthostatics q 8, monitor BP Will order TSH, lipid panel Cardiology consult Atrial fibrillation - chronic Remains on Afib on laboratory monitor A/P: On Metoprolol home dose, continue On Eliquis home dose, continue UTI UA with evidence of UTI, UC pending On Ceftriaxone daily Hypertension - chronic A/P: Monitor BP on metoprolol and adjust dose accordingly HLD - chronic home zocor 40mg changed to formulary lipitor 20mg PPX On eliquis for Afib FEN Monitor PO intake, electrolytes, low sodium diet Disposition: Observation. Visit type - Emergency Visit Emergency Visit: Yes ED Registration Date: 06/23/17 Care time: The patient presented to the Emergency Department on the above date and was hospitalized for further evaluation of their emergent condition. - New Patient This patient is new to me today: Yes Date on this admission: 06/24/17 - Critical Care Critical Care patient: No
[2017-06-23] MEDS ORDERED: CEFTRIAXONE 50 ML ONE (16:28)
[2017-06-23 18:06] VITALS: BMI 24.7
[2017-06-23] MEDS: APIXABAN 5 MG TABLET PO SCH (21:15)
[2017-06-23] MEDS: ACLIDINIUM BROMIDE 400 MCG/INH AERO.POWD IH SCH (21:15)
[2017-06-23] MEDS: BUDESONIDE/FORMETEROL FUMARATE 80/4.5 mcg INHALER IH SCH (21:15)
[2017-06-23] MEDS: METOPROLOL TARTRATE 25 MG TABLET (FP) PO SCH (21:15)
[2017-06-24 08:11] LABS: BASOPHIL 0.4 % (0-2.0); EOSINOPHIL 0.9 % (0-4.5); MCH 30.3 pg (25.7-33.7); MCHC 33.8 g/dl (32.0-35.9); MEAN CELL VOLUME 89.6 fl (80-96); MEAN PLT VOLUME 10.6 fl (7.5-11.1); NEUTROPHILS 81.2 % (42.8-82.8); PLATELET COUNT 160 K/MM3 (134-434); RDW 13.6 % (11.9-15.9)
[2017-06-24 08:33] LABS: CHOLESTEROL 237 mg/dL (50-200); MAGNESIUM 2.2 mg/dL (1.8-2.4)
[2017-06-24 08:37] LABS: CPK 56 IU/L (39-308); TROPONIN I < 0.02 ng/ml (0.00-0.05)
[2017-06-24] MEDS ORDERED: DEXTROSE 5%-WATER - 50 ML IVPB ONE (09:29)
[2017-06-24] MEDS ORDERED: cefTRIAXone SODIUM 1 GM VIAL ONE (09:29)
[2017-06-24] MEDS ORDERED: PT OWN MED DRAWER 7, Y5N ONE ×2 (09:30→20:19)
[2017-06-24] MEDS: CEFTRIAXONE 1 GM in DEXTROSE 5%-WATER - 50 ML IVPB SCH (09:32)
[2017-06-24] MEDS: METOPROLOL TARTRATE 25 MG TABLET (FP) PO SCH ×2 (09:33→21:29)
[2017-06-24] MEDS: APIXABAN 5 MG TABLET PO SCH ×2 (09:33→21:29)
[2017-06-24] MEDS: amLODIPine BESYLATE 2.5 MG TABLET (FP) PO SCH (09:33)
[2017-06-24] MEDS: BUDESONIDE/FORMETEROL FUMARATE 80/4.5 mcg INHALER IH SCH ×2 (09:33→21:29)
[2017-06-24] MEDS: ACLIDINIUM BROMIDE 400 MCG/INH AERO.POWD IH SCH ×2 (09:34→21:29)
[2017-06-24] MEDS ORDERED: ROSUVASTATIN CA 10 MG TABLET (FP) PO SCH (10:00)
--- NOTE | 2017-06-24 10:55 | PN ---
Physical Exam: SUBJECTIVE: Patient seen and examined. Denies dizziness or shortness of breath. Denies chest pain. OBJECTIVE: Head CT scan negative Troponins negative to date Atrial fib 130s with ambulation Vital Signs Period Temp Pulse Resp BP Sys/Villalobos Pulse Ox Last 24 Hr 98.1 F-98.5 F 79-93 18-20 109-128/78-81 97-97 GENERAL: Awake, alert, and fully oriented, in no acute distress. HEAD: Normal with no signs of trauma. EYES: Pupils equal, round and reactive to light, extraocular movements intact, sclera anicteric, conjunctiva clear. No lid lag. EARS, NOSE, THROAT: Ears normal, nares patent, oropharynx clear without exudates. Moist mucous membranes. NECK: Normal range of motion, supple without lymphadenopathy, JVD, or masses. LUNGS: Diminished but clear breath sounds, no wheezing or accessory muscle use. HEART: Atrial fib 130s with ambulation ABDOMEN: Soft, nontender, not distended, normoactive bowel sounds, no guarding, no rebound, no masses. No hepatomegaly or splenomegaly. MUSCULOSKELETAL: Normal range of motion at all joints. No bony deformities or tenderness. No CVA tenderness. UPPER EXTREMITIES: 2+ pulses, warm, well-perfused. No cyanosis. No clubbing. No peripheral edema. LOWER EXTREMITIES: 2+ pulses, warm, well-perfused. No calf tenderness. No peripheral edema. NEUROLOGICAL: Normal speech. Normal gait. PSYCHIATRIC: Cooperative. Good eye contact. Appropriate mood and affect. SKIN: Warm, dry, normal turgor, no rashes or lesions noted, normal capillary refill. Laboratory Results - last 24 hr 06/23/17 06/24/17 06/24/17 20:15 06:00 06:00 WBC 11.0 H D RBC 5.13 Hgb 15.5 Hct 46.0 MCV 89.6 MCH 30.3 MCHC 33.8 RDW 13.6 Plt Count 160 MPV 10.6 Neutrophils % 81.2 D Lymphocytes % 9.5 D Monocytes % 8.0 Eosinophils % 0.9 Basophils % 0.4 Hemoglobin A1c % Magnesium 2.2 Creatine Kinase 56 Troponin I < 0.02 < 0.02 Triglycerides 116 Cholesterol 237 H Total LDL Cholesterol 156 H HDL Cholesterol 60 06/24/17 06:00 WBC RBC Hgb Hct MCV MCH MCHC RDW Plt Count MPV Neutrophils % Lymphocytes % Monocytes % Eosinophils % Basophils % Hemoglobin A1c % 5.4 Magnesium Creatine Kinase Troponin I Triglycerides Cholesterol Total LDL Cholesterol HDL Cholesterol Active Medications Generic Name Dose Route Start Last Admin Trade Name Markos PRN Reason Stop Dose Admin Aclidinium [place] 1 puff 06/23/17 22:00 06/24/17 09:34 Tudorza - IH 1 inh BID MARY Administration Amlodipine Besylate 2.5 mg 06/24/17 10:00 06/24/17 09:33 Norvasc - PO 2.5 mg DAILY MARY Administration Apixaban 5 mg 06/23/17 22:00 06/24/17 09:33 Eliquis - PO 5 mg BID MARY Administration Budesonide/Formoterol Fumarate 2 puff 06/23/17 22:00 06/24/17 09:33 Symbicort 80/4.5mcg - IH 2 puff BID MARY Administration Ceftriaxone Sodium 1 gm/ 50 mls @ 100 mls/hr 06/24/17 10:00 06/24/17 09:32 Dextrose IVPB 100 mls/hr DAILY MARY Administration Metoprolol Tartrate 25 mg 06/23/17 22:00 06/24/17 09:33 Lopressor - PO 25 mg BID MARY Administration Rosuvastatin Calcium 10 mg 06/24/17 10:00 06/24/17 09:33 Crestor - PO 10 mg DAILY MARY Administration ASSESSMENT/PLAN: Mr. Lan is an 86 year old male with a significant past medical history of hypertension, hld, New onset afib (on Eliquis/afib diagnosed 10/2016) who presents to the emergency department today following an episode of feeling dizzy and possibly losing consciousness shortly this morning. It was reported that patient was seated with his when witnessed pt's eyes rolling back. Pt became unresponsive and slumped over but did not fall. Pt's states he was unresponsive for about 10 seconds before he regained consciousness. He does not recall the event but does report episodes of dizziness. He denies chest pain or shortness of breath. Ambulates with a walker at home. He was sitting at the time and denies any trauma or pain. He denies hitting his head. As per and daughter, he felt better shortly thereafter. The patient denies chest pain, shortness of breath, headache and dizziness. He further denies fever, chills, nausea, vomit, diarrhea and constipation. Imaging: CXR 06/23/2017: No acute pathology. Clear lungs, moderate enlargement of cardiac silhouette Head CT 06/24/2017: negative Cardiology: Syncope/Pre-syncope, denies any head trauma - acute A/P: Monitor on tele to rule out pauses No head injury, mental status at baseline as per family No signs of trauma on physical exam Troponins negative x 3 Orthostatics q 8, but not orthostatic changes so far Head CT negative Hyperlipidemia - chronic A/P: lipid panel reviewed, increase Crestor Atrial fibrillation - chronic A/P: Remains on Afib on electronic device monitor Atril fib 130s-150s with ambulation On Metoprolol home dose, continue On Eliquis home dose, continue Hypertension - chronic A/P: Monitor BP on metoprolol and adjust dose accordingly UTI UA with evidence of UTI, UC pending On Ceftriaxone daily PPX DVT: On eliquis for Afib GI: deferred FEN Monitor PO intake, electrolytes, low sodium diet Disposition: Observation. Full code. Visit type - Emergency Visit Emergency Visit: Yes ED Registration Date: 06/23/17 Care time: The patient presented to the Emergency Department on the above date and was hospitalized for further evaluation of their emergent condition. - New Patient This patient is new to me today: No - Critical Care Critical Care patient: No - Discharge Referral Referred to [facility] Med P.C.: No
--- NOTE | 2017-06-24 11:28 | CONSULT ---
Consult Consult Specialty:: Cardiology Referred by:: Dr. Herring Reason for Consultation:: Afib and presyncope - History of Present Illness Chief Complaint: Syncope History of Present Illness: 86 yo male Known h/o Afib newly diagnosed during admission in 10/2016 after presenting after syncope. HTN and hyperlipidemia Now admitted after syncopal episode at home Per notes: Pt was seated with his when witnessed pt's eyes rolling back. Pt became unresponsive and slumped over but did not fall. Pt's states he was unresponsive for about 10 seconds before he regained consciousness. Per my history he does not recall event but states that he did feel dizzy. No chest pain or dyspnea He uses a cane at home - History Source History Provided By: Patient, Medical Record Limitations to Obtaining History: Poor Historian - Alcohol/Substance Use Hx Alcohol Use: Yes (occasional) - Smoking History Smoking history: Former smoker Have you smoked in the past 12 months: No If you are a former smoker, when did you quit?: 1977 Home Medications - Allergies Allergies/Adverse Reactions: Allergies Allergy/AdvReac Type Severity Reaction Status Date / Time No Known Allergies Allergy Verified 06/23/17 12:29 - Home Medications Home Medications: Ambulatory Orders Albuterol Sulfate Inhaler - [Ventolin HFA Inhaler -] 2 inh PO Q4H #1 inh Apixaban [Eliquis -] 5 mg PO BID #60 tablet 11/10/16 Budesonide/Formeterol Fumarate [SYMBICORT 80/4.5mcg -] 2 puff IH BID #1 inhaler 11/10/16 Tiotropium [place] [Spiriva] 1 puff IH DAILY #1 inh 11/10/16 Amlodipine Besylate [Norvasc -] 2.5 mg PO DAILY 06/23/17 Metoprolol Tartrate [Lopressor -] 25 mg PO BID 06/23/17 Rosuvastatin Calcium [Crestor] 10 mg PO DAILY 06/23/17 Physical Exam Vital Signs: Vital Signs Temperature 98.4 F 06/24/17 09:30 Pulse Rate 116 H 06/24/17 09:30 Respiratory Rate 18 06/24/17 09:30 Blood Pressure 123/56 06/24/17 09:30 O2 Sat by Pulse Oximetry (%) 97 06/24/17 02:16 Constitutional: Yes: No Distress, Calm Eyes: Yes: Conjunctiva Clear HENT: Yes: WNL Neck: Yes: WNL Cardiovascular: Yes: Pulse Irregular Respiratory: Yes: Regular Gastrointestinal: Yes: Normal Bowel Sounds Musculoskeletal: Yes: WNL Extremities: Yes: WNL Edema: No Labs: CBC, BMP 06/24/17 06:00 Imaging - Results EKG: Image Reviewed (On 06/23/2017 at 09:20 Afib at 112.) Assessment/Plan 86 yo male with HTN, HPL and recent diagnosis of AF on NOAC now with recurrent syncopal episode. 1) Syncope -Unclear etiology -Afib alone should not elicit syncope, unless in the setting of obstructive valular heart disease (ie severe ) by droping cardiac output. His echo in October 2016 did show moderate to severe with normal LV and dialted RV. Perhaps underestimated at that time.? -Would recheck echo to assess progression (9 months later) -Would check orthostatic BP as occured when standing up 2) Afib During [facility] admission there were questions raised re: AC candidacy given fall risk but appears to have been initaited on AC. -Will continue for now while inhouse but may need to reconsider this given his fall risk with MDs that know him and his home circumstances. -Continue metoprolol at current dose. 3) HPL -Continue statin
[2017-06-24] MEDS: ACETAMINOPHEN 325 MG TABLET (FP) PO PRN (17:22)
[2017-06-25 08:30] LABS: BASOPHIL 0.5 % (0-2.0); EOSINOPHIL 4.2 % (0-4.5); MCH 30.1 pg (25.7-33.7); MCHC 33.4 g/dl (32.0-35.9); MEAN PLT VOLUME 10.8 fl (7.5-11.1); NEUTROPHILS 79.7 % (42.8-82.8); PLATELET COUNT 143 K/MM3 (134-434); RDW 13.9 % (11.9-15.9); WHITE BLOOD COUNT 9.8 K/mm3 (4.0-10.0)
[2017-06-25] MEDS ORDERED: PT OWN MED DRAWER 7, Y5N ONE ×2 (08:50→20:19)
[2017-06-25] MEDS ORDERED: cefTRIAXone SODIUM 1 GM VIAL ONE (08:50)
[2017-06-25] MEDS ORDERED: DEXTROSE 5%-WATER - 50 ML IVPB ONE (08:51)
[2017-06-25 08:52] LABS: SGOT/AST 13 U/L (15-37); SGPT/ALT 19 U/L (12-78)
[2017-06-25] MEDS: ACLIDINIUM BROMIDE 400 MCG/INH AERO.POWD IH SCH ×2 (08:59→21:30)
[2017-06-25] MEDS: CEFTRIAXONE 1 GM in DEXTROSE 5%-WATER - 50 ML IVPB SCH (08:59)
[2017-06-25] MEDS: APIXABAN 5 MG TABLET PO SCH ×2 (08:59→21:30)
[2017-06-25] MEDS: amLODIPine BESYLATE 2.5 MG TABLET (FP) PO SCH (08:59)
[2017-06-25] MEDS: METOPROLOL TARTRATE 25 MG TABLET (FP) PO SCH (08:59)
[2017-06-25] MEDS: BUDESONIDE/FORMETEROL FUMARATE 80/4.5 mcg INHALER IH SCH ×2 (08:59→21:30)
[2017-06-25 09:09] LABS: ALBUMIN 3.3 g/dl (3.4-5.0); ALK PHOS 127 U/L (45-117); ANION GAP 12 (8-16); BILIRUBIN,TOTAL 1.1 mg/dL (0.2-1.0); CALCIUM 8.6 mg/dL (8.5-10.1); CO2 23 mmol/L (21-32); GLUCOSE,RANDOM 102 mg/dL (74-106); THYROID STIMULATING HORMONE 0.84 uIU/ml (0.358-3.74); TOT PROT 6.1 g/dl (6.4-8.2)
--- NOTE | 2017-06-25 09:52 | EKG ---
Test Reason : Blood Pressure : / mmHG Vent. Rate : 112 BPM Atrial Rate : 357 BPM P-R Int : 000 ms QRS Dur : 084 ms QT Int : 326 ms P-R-T Axes : 000 016 047 degrees QTc Int : 444 ms ATRIAL FLUTTER WITH VARIABLE A-V BLOCK NONSPECIFIC ST AND T WAVE ABNORMALITY ABNORMAL ECG Confirmed by MD HARDEEP, CHIKIS ([id number]) on 06/25/2017 9:51:40 AM Referred By: Heena PECK Confirmed By:CHIKIS MEIER MD
--- NOTE | 2017-06-25 10:34 | PN ---
Progress Note, Physician History of Present Illness: No complaints today Denies dizziness Tele: Afib with RVR to 150s overnight - Current Medication List Current Medications: Active Medications Acetaminophen (Tylenol -) 650 mg PO Q6H PRN PRN Reason: FEVER OR PAIN Last Admin: 06/24/17 17:22 Dose: 650 mg Aclidinium [place] (Tudorza -) 1 puff IH BID [facility] Last Admin: 06/25/17 08:59 Dose: 1 inh Amlodipine Besylate (Norvasc -) 2.5 mg PO DAILY [facility] Last Admin: 06/25/17 08:59 Dose: 2.5 mg Apixaban (Eliquis -) 5 mg PO BID [facility] Last Admin: 06/25/17 08:59 Dose: 5 mg Budesonide/Formoterol Fumarate (Symbicort 80/4.5mcg -) 2 puff IH BID [facility] Last Admin: 06/25/17 08:59 Dose: 2 puff Ceftriaxone Sodium 1 gm/ (Dextrose) 50 mls @ 100 mls/hr IVPB DAILY [facility] Last Admin: 06/25/17 08:59 Dose: 100 mls/hr Metoprolol Tartrate (Lopressor -) 25 mg PO BID [facility] Last Admin: 06/25/17 08:59 Dose: 25 mg Rosuvastatin Calcium (Crestor -) 20 mg PO [facility] - Objective Vital Signs: Vital Signs Temperature 98.6 F 06/25/17 06:00 Pulse Rate 94 H 06/25/17 06:00 Respiratory Rate 20 06/25/17 06:00 Blood Pressure 129/64 06/25/17 06:00 O2 Sat by Pulse Oximetry (%) 94 L 06/24/17 21:00 Constitutional: Yes: No Distress, Calm Eyes: Yes: WNL HENT: Yes: WNL, Atraumatic Neck: Yes: Supple, Trachea Midline Cardiovascular: Yes: Pulse Irregular, Murmur Respiratory: Yes: CTA Bilaterally Gastrointestinal: Yes: Normal Bowel Sounds Musculoskeletal: Yes: WNL Extremities: Yes: WNL Edema: No Labs: CBC, BMP 06/25/17 06:00 06/25/17 06:00 Assessment/Plan 86 yo male with HTN, HPL and recent diagnosis of AF on NOAC now with recurrent syncopal episode. 1) Syncope -Unclear etiology -Afib alone should not elicit syncope, unless in the setting of obstructive valular heart disease (ie severe ) by droping cardiac output. His echo in October 2016 did show moderate to severe with normal LV and dialted RV. Perhaps underestimated at that time, although exam does not suggest critical .? -Awaiting echo to assess progression (9 months later) -Please check oprthostatic BP 2) Afib During prior admission there were questions raised re: AC candidacy given fall risk but appears to have been initaited on AC. -Will continue for now while inhouse but may need to reconsider this given his fall risk with MDs that know him and his home circumstances. -Had RVR overnight and will increase metoprolol to 37.5mg PO BID. 3) HPL -Continue statin
--- NOTE | 2017-06-25 12:31 | PN ---
Physical Exam: SUBJECTIVE: Patient seen and examined at the bedside. OBJECTIVE: Afib 180s with RVR this morning Lopressor increased to 50mg BID Echo ordered Fever of 101F yesterday, afebrile since blood cultures sent Vital Signs Period Temp Pulse Resp BP Sys/Villalobos Pulse Ox Last 24 Hr 98.0 F-101.3 F 66-105 18-20 103-129/53-69 94-98 GENERAL: Awake, alert, and fully oriented, in no acute distress. HEAD: Normal with no signs of trauma. EYES: Pupils equal, round and reactive to light, extraocular movements intact, sclera anicteric, conjunctiva clear. No lid lag. EARS, NOSE, THROAT: Ears normal, nares patent, oropharynx clear without exudates. Moist mucous membranes. NECK: Normal range of motion, supple without lymphadenopathy, JVD, or masses. LUNGS: Diminished but clear breath sounds, no wheezing or accessory muscle use. HEART: Atrial fib 130s-180s with ambulation ABDOMEN: Soft, nontender, not distended, normoactive bowel sounds, no guarding, no rebound, no masses. No hepatomegaly or splenomegaly. MUSCULOSKELETAL: Normal range of motion at all joints. No bony deformities or tenderness. No CVA tenderness. UPPER EXTREMITIES: 2+ pulses, warm, well-perfused. No cyanosis. No clubbing. No peripheral edema. LOWER EXTREMITIES: 2+ pulses, warm, well-perfused. No calf tenderness. No peripheral edema. NEUROLOGICAL: Normal speech. Normal gait. PSYCHIATRIC: Cooperative. Good eye contact. Appropriate mood and affect. SKIN: Warm, dry, normal turgor, no rashes or lesions noted, normal capillary refill. Laboratory Results - last 24 hr 06/25/17 06/25/17 06:00 06:00 WBC 9.8 RBC 4.97 Hgb 14.9 Hct 44.7 MCV 90.0 MCH 30.1 MCHC 33.4 RDW 13.9 Plt Count 143 MPV 10.8 Neutrophils % 79.7 Lymphocytes % 7.7 L Monocytes % 7.9 Eosinophils % 4.2 D Basophils % 0.5 Sodium 142 Potassium 4.1 Chloride 107 Carbon Dioxide 23 D Anion Gap 12 BUN 24 H D Creatinine 1.0 Creat Clearance w eGFR > 60 Random Glucose 102 Calcium 8.6 Total Bilirubin 1.1 H D AST 13 L ALT 19 Alkaline Phosphatase 127 H Total Protein 6.1 L Albumin 3.3 L TSH 0.84 D Active Medications Generic Name Dose Route Start Last Admin Trade Name Freq PRN Reason Stop Dose Admin Acetaminophen 650 mg 06/24/17 17:06 06/24/17 17:22 Tylenol - PO 650 mg Q6H PRN Administration FEVER OR PAIN Aclidinium [place] 1 puff 06/23/17 22:00 06/25/17 08:59 Tudorza - IH 1 inh BID MARY Administration Amlodipine Besylate 2.5 mg 06/24/17 10:00 06/25/17 08:59 Norvasc - PO 2.5 mg DAILY MARY Administration Apixaban 5 mg 06/23/17 22:00 06/25/17 08:59 Eliquis - PO 5 mg BID MARY Administration Budesonide/Formoterol Fumarate 2 puff 06/23/17 22:00 06/25/17 08:59 Symbicort 80/4.5mcg - IH 2 puff BID MARY Administration Ceftriaxone Sodium 1 gm/ 50 mls @ 100 mls/hr 06/24/17 10:00 06/25/17 08:59 Dextrose IVPB 100 mls/hr DAILY MARY Administration Metoprolol Tartrate 50 mg 06/25/17 22:00 Lopressor - PO BID MARY Rosuvastatin Calcium 20 mg 06/25/17 22:00 Crestor - PO HS MARY ASSESSMENT/PLAN: Mr. Lan is an 86 year old male with a significant past medical history of hypertension, hld, New onset afib (on Eliquis/afib diagnosed 10/2016) who presents to the emergency department today following an episode of feeling dizzy and possibly losing consciousness shortly this morning. It was reported that patient was seated with his when witnessed pt's eyes rolling back. Pt became unresponsive and slumped over but did not fall. Pt's states he was unresponsive for about 10 seconds before he regained consciousness. He does not recall the event but does report episodes of dizziness. He denies chest pain or shortness of breath. Ambulates with a walker at home. He was sitting at the time and denies any trauma or pain. He denies hitting his head. As per and daughter, he felt better shortly thereafter. The patient denies chest pain, shortness of breath, headache and dizziness. He further denies fever, chills, nausea, vomit, diarrhea and constipation. Imaging: CXR 06/23/2017: No acute pathology. Clear lungs, moderate enlargement of cardiac silhouette Head CT 06/24/2017: negative Cardiology: Syncope/Pre-syncope, denies any head trauma - acute A/P: Monitor on tele to rule out pauses No head injury, mental status at baseline as per family No signs of trauma on physical exam Troponins negative x 3 Orthostatics q 8, but no orthostatic changes so far Head CT negative Hyperlipidemia - chronic A/P: lipid panel reviewed, increased Crestor to 20mg Atrial fibrillation - chronic A/P: Remains on Afib on radiation monitor with episodes of afib 180s with RVR this morning Atril fib 130s-180s with ambulation On Metoprolol home dose, increased to Metoprolol 50mg BID On Eliquis home dose, continue Hypertension - chronic A/P: Monitor BP on metoprolol and adjust dose accordingly ID/UTI: Fever of unknown source - acute A/P: Continue Ceftriaxone as per ID Monitor fever curve, WBC within normal limits Blood cultures sent yesterday PPX DVT: On eliquis for Afib GI: deferred FEN Monitor PO intake, electrolytes, low sodium diet Disposition: Observation. Full code. Visit type - Emergency Visit Emergency Visit: Yes ED Registration Date: 06/23/17 Care time: The patient presented to the Emergency Department on the above date and was hospitalized for further evaluation of their emergent condition. - New Patient This patient is new to me today: No - Critical Care Critical Care patient: No - Discharge Referral Referred to [facility] Med P.C.: No
--- NOTE | 2017-06-25 13:48 | PN ---
Progress Note (short form) - Note Progress Note: ID Consult dictated Syncope Fever/ leukocytosis UTI Await cultures Empiric ceftriaxone Syncope workup
[2017-06-25] MEDS ORDERED: CEFTRIAXONE 2 GM in DEXTROSE 5%-WATER - 100 ML IVPB SCH (14:00)
--- NOTE | 2017-06-25 18:51 | CONS ---
DATE OF CONSULTATION: DATE OF DICTATION: 06/25/2017 The patient is an 86-year-old male evaluated for fever and leukocytosis. History was obtained from the chart as well as the patient and his present at the time of exam. He presented to the hospital with dizziness and syncopal episode. The reports a witnessed syncopal episode on the day of admission. He was seated in a chair and suddenly lost consciousness for approximately 10 seconds. He regained consciousness spontaneously. There was no report of fall or head trauma. No witnessed seizure activity. No fecal or urinary incontinence. He was evaluated in the emergency room, where CAT scan of the head was negative for acute infarct or bleed. His hospital course has been complicated by elevated temperature and white count. He is out of bed to chair, has no focal complaint at this time. He denies any headache. No complaints of chest pain, shortness of breath, cough, sputum production, vomiting, diarrhea, dysuria, or hematuria. He has had no recent febrile illnesses. The patient had a history of syncopal episode in the past, which heralded atrial fibrillation and pneumonia. PAST MEDICAL HISTORY: Positive for hypertension, hyperlipidemia, atrial fibrillation. PAST SURGICAL HISTORY: Status post right shoulder and bilateral knee arthroscopies. No known allergies. MEDICATIONS: Ventolin, Eliquis, Symbicort, Lopressor, Spiriva, Crestor. SOCIAL HISTORY: Lives at home with his . He is a former smoker. He was last hospitalized in October of this year with new-onset atrial fibrillation. SYSTEMS REVIEW: Neurologic: As per HPI. Cardiac: Negative chest pain or palpitations. Respiratory: Negative cough or sputum production. Gastrointestinal: Negative vomiting or diarrhea. Genitourinary: Negative for dysuria or hematuria. LABORATORY DATA: White count on admission 11, presently 9.8, hematocrit 44.7, platelet count 143, BUN 24, creatinine 1.0, total bilirubin 1.1, alkaline phosphatase 127, AST 13. Urinalysis: 17 white cells. Chest x-ray negative for acute infiltrate. Cultures are pending. PHYSICAL EXAMINATION: General: He is out of bed to chair. He is awake and alert. He is not acutely toxic appearing. Vital Signs: Temperature 98.4. T-max 101.3. Blood pressure 114/53. Pulse 102, regular. Respiration 20 per minute. Eyes: Sclerae anicteric. Heart Sounds: S1, S2. No murmur. Lungs: A few crepitations at the bases bilaterally. Abdomen: Soft. No tenderness elicited. No mass, rebound or rigidity. Extremities: Negative for edema. IMPRESSION: 1. Syncope. 2. Fever, leukocytosis, possible sepsis. 3. Urinary tract infection. Await cultures. Will obtain influenza swab. Continue empiric antibiotic coverage with ceftriaxone. Thank you for the kind referral. ABBE GONZALEZ M.D. [id number]
[2017-06-25] MEDS: METOPROLOL TARTRATE 50 MG TABLET (FP) PO SCH (21:30)
[2017-06-25] MEDS: ROSUVASTATIN CA 10 MG TABLET (FP) PO SCH (21:30)
[2017-06-26 07:16] LABS: BASOPHIL 0.5 % (0-2.0); EOSINOPHIL 6.4 % (0-4.5); MCH 30.4 pg (25.7-33.7); MCHC 33.6 g/dl (32.0-35.9); MEAN CELL VOLUME 90.5 fl (80-96); MEAN PLT VOLUME 10.7 fl (7.5-11.1); NEUTROPHILS 73.5 % (42.8-82.8); PLATELET COUNT 139 K/MM3 (134-434); RDW 13.8 % (11.9-15.9); WHITE BLOOD COUNT 9.2 K/mm3 (4.0-10.0)
[2017-06-26 07:39] LABS: ALBUMIN 3.1 g/dl (3.4-5.0); ANION GAP 8 (8-16); BILIRUBIN,TOTAL 0.6 mg/dL (0.2-1.0); CALCIUM 8.4 mg/dL (8.5-10.1); CO2 26 mmol/L (21-32); GLUCOSE,RANDOM 108 mg/dL (74-106); SGOT/AST 15 U/L (15-37); SGPT/ALT 20 U/L (12-78); TOT PROT 5.8 g/dl (6.4-8.2)
[2017-06-26 07:41] LABS: ALK PHOS 110 U/L (45-117)
--- NOTE | 2017-06-26 08:22 | PN ---
Progress Note, Physician Chief Complaint: syncope History of Present Illness: pt with poor recall for events. hx obtained from . he woke up early am per usual, took meds shortly thereafter (including metoprolol plus amlodipine 2.5mg, the latter added in office by me 03/01). had usual breakfast with one coffee and small amt of water. went outside to do some gardening, came in around 9am c/o dizzy. sat and rested. they were sitting on porch at 9:30 when he lost consciousness for only several seconds. he recalls dizzy, denies cp, sob, palpitations. on DOA he had forgotten tamsulosin the night before so took it that morning currently no dizzy. no cp, sob, palpitations - Current Medication List Current Medications: Active Medications Acetaminophen (Tylenol -) 650 mg PO Q6H PRN PRN Reason: FEVER OR PAIN Last Admin: 06/24/17 17:22 Dose: 650 mg Aclidinium [place] (Tudorza -) 1 puff IH BID [facility] Last Admin: 06/25/17 21:30 Dose: Not Given Amlodipine Besylate (Norvasc -) 2.5 mg PO DAILY [facility] Last Admin: 06/25/17 08:59 Dose: 2.5 mg Apixaban (Eliquis -) 5 mg PO BID [facility] Last Admin: 06/25/17 21:30 Dose: 5 mg Budesonide/Formoterol Fumarate (Symbicort 80/4.5mcg -) 2 puff IH BID [facility] Last Admin: 06/25/17 21:30 Dose: 2 puff Ceftriaxone Sodium 2 gm/ (Dextrose) 100 mls @ 200 mls/hr IVPB DAILY [facility] Metoprolol Tartrate (Lopressor -) 50 mg PO BID [facility] Last Admin: 06/25/17 21:30 Dose: 50 mg Rosuvastatin Calcium (Crestor -) 20 mg PO HS [facility] Last Admin: 06/25/17 21:30 Dose: 20 mg - Objective Vital Signs: Vital Signs Temperature 97.8 F 06/26/17 06:00 Pulse Rate 101 H 06/26/17 06:00 Respiratory Rate 20 06/26/17 06:00 Blood Pressure 136/76 06/26/17 06:00 O2 Sat by Pulse Oximetry (%) 96 06/25/17 21:00 Constitutional: Yes: No Distress, Calm Eyes: No: Sclera Icterus HENT: No: Nasal Congestion Cardiovascular: Yes: Pulse Irregular, S1, S2, Other (PMI non diplaced). No: Gallop, Murmur Respiratory: Yes: CTA Bilaterally. No: Accessory Muscle Use, Rales, Wheezes Gastrointestinal: Yes: Normal Bowel Sounds, Soft. No: Tenderness Musculoskeletal: Yes: Other (No kyphosis) Extremities: No: Cold Edema: No Integumentary: No: Jaundice Neurological: Yes: Alert, Oriented (x3) Psychiatric: No: Agitated Labs: CBC, BMP 06/26/17 06:20 06/26/17 06:20 - ....Imaging EKG: Other (tele: afibbriefly to 100s, o/w good HRs) Assessment/Plan Echo 11/01 (DF): nl LV/EF; no RWMA. borderling RVE with nl fxn. mild LAE. mild MR /TR. RVSP 41. MPI 12/30 (mago): no STs, no ischemia, nl EF (no TID) 86 yo male with HTN, HPL and recent diagnosis of AF on NOAC now with recurrent syncopal episode. Syncope -prior episode early 2016 with poor recall of events, ? due to PNA at that time. bp dropped 140s to 130s on standing so amlodipine was held then. he remained asymptomatic since then on office f/u -highly likely the current episode was related to vasodilating meds in predisposed pt (took flomax in AM, not his usual time, plus recently started low dose amlodipine) who does not hydrate much in am. -cont tele--will do outpt monitor to confirm no SSS -rec cont usual PM dosing of flomax, and change amlodipine to lunch time -rpt echo ordered here, results pending -no orthostatic BP drop x 1 here, not suspected etiology -monitor tele another 24 hrs--consider dc tomorrow if no madelyn's and HR well controlled in AF including with ambulation Afib: -during prior admit early 2016 when pt presented with syncope, his PMD weighed in as did family, and that was first time episode with no gait disturbances, hence AC was initiated. he has been stable as outpt with no ongoing balance problems/falls risks -HR 80s on presentation to ER, max 110s--doubt cause of syncope from rhythm related hemodynamic changes -Had RVR here (150s)--increased lopressor from 25 bid to 37.5mg PO BID, then to 50 bid. 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
[2017-06-26] MEDS ORDERED: DEXTROSE 5%-WATER 100 ML IVPB ONE ×2 (09:05→09:30)
[2017-06-26] MEDS ORDERED: PT OWN MED DRAWER 7, Y5N ONE ×4 (09:17→22:41)
[2017-06-26] MEDS: METOPROLOL TARTRATE 50 MG TABLET (FP) PO SCH (09:24)
[2017-06-26] MEDS: APIXABAN 5 MG TABLET PO SCH ×2 (09:24→22:29)
[2017-06-26] MEDS: BUDESONIDE/FORMETEROL FUMARATE 80/4.5 mcg INHALER IH SCH ×2 (09:25→22:29)
[2017-06-26] MEDS: amLODIPine BESYLATE 2.5 MG TABLET (FP) PO SCH (09:25)
[2017-06-26] MEDS: ACLIDINIUM BROMIDE 400 MCG/INH AERO.POWD IH SCH ×2 (09:26→22:29)
[2017-06-26] MEDS ORDERED: CEFTRIAXONE 2 GM in DEXTROSE 5%-WATER 100 ML IVPB SCH (10:00)
--- NOTE | 2017-06-26 12:41 | PN ---
Progress Note, Physician History of Present Illness: Awake, alert Seated in bed No complaints No c/o chest pain/ dyspnea/ cough No dysuria No N/V Low grade temp 100.1 WBC WNL Cultures negative - Current Medication List Current Medications: Active Medications Acetaminophen (Tylenol -) 650 mg PO Q6H PRN PRN Reason: FEVER OR PAIN Last Admin: 06/24/17 17:22 Dose: 650 mg Aclidinium [place] (Tudorza -) 1 puff IH BID [facility] Last Admin: 06/26/17 09:26 Dose: 1 inh Amlodipine Besylate (Norvasc -) 2.5 mg PO DAILY@1200 MARY Apixaban (Eliquis -) 5 mg PO BID [facility] Last Admin: 06/26/17 09:24 Dose: 5 mg Budesonide/Formoterol Fumarate (Symbicort 80/4.5mcg -) 2 puff IH BID [facility] Last Admin: 06/26/17 09:25 Dose: 2 puff Ceftriaxone Sodium 2 gm/ (Dextrose) 100 mls @ 200 mls/hr IVPB DAILY [facility] Last Admin: 06/26/17 09:30 Dose: 200 mls/hr Metoprolol Succinate (Toprol Xl -) 50 mg PO BID [facility] Rosuvastatin Calcium (Crestor -) 20 mg PO HS [facility] Last Admin: 06/25/17 21:30 Dose: 20 mg - Objective Vital Signs: Vital Signs Temperature 98.0 F 06/26/17 10:00 Pulse Rate 101 H 06/26/17 10:00 Respiratory Rate 18 06/26/17 10:00 Blood Pressure 146/72 06/26/17 10:00 O2 Sat by Pulse Oximetry (%) 96 06/25/17 21:00 Constitutional: Yes: No Distress Eyes: Yes: Conjunctiva Clear Cardiovascular: Yes: Regular Rate and Rhythm, S1, S2 Respiratory: Yes: CTA Bilaterally Gastrointestinal: Yes: Normal Bowel Sounds, Soft. No: Tenderness Edema: No Labs: CBC, BMP 06/26/17 06:20 06/26/17 06:20 Assessment/Plan S/P syncope Fever/ leukocytosis- improved Switch to po ceftin 500mg bid x 5d
--- NOTE | 2017-06-26 13:23 | PN ---
Physical Exam: SUBJECTIVE: Patient seen and examined at the bedside. He denies any dizziness or shortness of breath. OBJECTIVE: Vital Signs Period Temp Pulse Resp BP Sys/Villalobos Pulse Ox Last 24 Hr 97.8 F-100.1 F 87-105 18-20 103-146/59-78 96 ENERAL: Awake, alert, and fully oriented, in no acute distress. HEAD: Normal with no signs of trauma. EYES: Pupils equal, round and reactive to light, extraocular movements intact, sclera anicteric, conjunctiva clear. No lid lag. EARS, NOSE, THROAT: Ears normal, nares patent, oropharynx clear without exudates. Moist mucous membranes. NECK: Normal range of motion, supple without lymphadenopathy, JVD, or masses. LUNGS: Diminished but clear breath sounds, no wheezing or accessory muscle use. HEART: Atrial fib controlled, ABDOMEN: Soft, nontender, not distended, normoactive bowel sounds, no guarding, no rebound, no masses. No hepatomegaly or splenomegaly. MUSCULOSKELETAL: Normal range of motion at all joints. No bony deformities or tenderness. No CVA tenderness. UPPER EXTREMITIES: 2+ pulses, warm, well-perfused. No cyanosis. No clubbing. No peripheral edema. LOWER EXTREMITIES: 2+ pulses, warm, well-perfused. No calf tenderness. No peripheral edema. NEUROLOGICAL: Normal speech. Normal gait. PSYCHIATRIC: Cooperative. Good eye contact. Appropriate mood and affect. SKIN: Warm, dry, normal turgor, no rashes or lesions noted, normal capillary refill. Laboratory Results - last 24 hr 06/26/17 06/26/17 06:20 06:20 WBC 9.2 RBC 4.60 Hgb 14.0 Hct 41.7 MCV 90.5 MCH 30.4 MCHC 33.6 RDW 13.8 Plt Count 139 MPV 10.7 Neutrophils % 73.5 Lymphocytes % 10.4 D Monocytes % 9.2 Eosinophils % 6.4 H Basophils % 0.5 Sodium 142 Potassium 3.9 Chloride 108 H Carbon Dioxide 26 Anion Gap 8 BUN 23 H Creatinine 1.0 Creat Clearance w eGFR > 60 Random Glucose 108 H Calcium 8.4 L Total Bilirubin 0.6 D AST 15 ALT 20 Alkaline Phosphatase 110 Total Protein 5.8 L Albumin 3.1 L Active Medications Generic Name Dose Route Start Last Admin Trade Name Freq PRN Reason Stop Dose Admin Acetaminophen 650 mg 06/24/17 17:06 06/24/17 17:22 Tylenol - PO 650 mg Q6H PRN Administration FEVER OR PAIN Aclidinium [place] 1 puff 06/23/17 22:00 06/26/17 09:26 Tudorza - IH 1 inh BID MARY Administration Amlodipine Besylate 2.5 mg 06/27/17 12:00 Norvasc - PO DAILY@1200 MARY Apixaban 5 mg 06/23/17 22:00 06/26/17 09:24 Eliquis - PO 5 mg BID MARY Administration Budesonide/Formoterol Fumarate 2 puff 06/23/17 22:00 06/26/17 09:25 Symbicort 80/4.5mcg - IH 2 puff BID MARY Administration Cefuroxime Axetil 500 mg 06/26/17 22:00 Ceftin - PO BID MARY Metoprolol Succinate 50 mg 06/26/17 22:00 Toprol Xl - PO BID MARY Rosuvastatin Calcium 20 mg 06/25/17 22:00 06/25/17 21:30 Crestor - PO 20 mg HS MARY Administration ASSESSMENT/PLAN: Mr. Lan is an 86 year old male with a significant past medical history of hypertension, hld, New onset afib (on Eliquis/afib diagnosed 10/2016) who presents to the emergency department today following an episode of feeling dizzy and possibly losing consciousness shortly this morning. It was reported that patient was seated with his when witnessed pt's eyes rolling back. Pt became unresponsive and slumped over but did not fall. Pt's states he was unresponsive for about 10 seconds before he regained consciousness. He does not recall the event but does report episodes of dizziness. He denies chest pain or shortness of breath. Ambulates with a walker at home. The patient denies chest pain, shortness of breath, headache and dizziness. He further denies fever, chills, nausea, vomit, diarrhea and constipation. Imaging: CXR 06/23/2017: No acute pathology. 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 On Eliquis home dose, continue Will ambulate patient in a.m. and assess heart rate with ambulation and any other symptoms Hypertension - chronic A/P: Monitor BP on metoprolol and adjust dose accordingly ID/UTI: Fever of unknown source - acute A/P: WBC wnl, tmax 100.1F blood/urine cultures negative On Ceftin 500mg BID PO Fever curve improving PPX DVT: On eliquis for Afib GI: deferred Disposition: Full code. discharge tomorrow once cleared by cardiology. Visit type - Emergency Visit Emergency Visit: Yes ED Registration Date: 06/23/17 Care time: The patient presented to the Emergency Department on the above date and was hospitalized for further evaluation of their emergent condition. - New Patient This patient is new to me today: No - Critical Care Critical Care patient: No - Discharge Referral Referred to [facility] Med P.C.: No
[2017-06-26] MEDS: ACETAMINOPHEN 325 MG TABLET (FP) PO PRN (20:40)
[2017-06-26] MEDS: ROSUVASTATIN CA 10 MG TABLET (FP) PO SCH (22:28)
[2017-06-26] MEDS: CEFUROXIME AXETIL 500 MG TABLET PO SCH (22:29)
[2017-06-26] MEDS: METOPROLOL SUCCINATE 50 MG TAB.SR.24H (FP) PO SCH (22:30)
[2017-06-27 07:56] LABS: BASOPHIL 0.6 % (0-2.0); EOSINOPHIL 5.3 % (0-4.5); MCH 29.8 pg (25.7-33.7); MEAN CELL VOLUME 90.5 fl (80-96); MEAN PLT VOLUME 10.9 fl (7.5-11.1); NEUTROPHILS 76.4 % (42.8-82.8); PLATELET COUNT 142 K/MM3 (134-434); RDW 13.6 % (11.9-15.9); WHITE BLOOD COUNT 8.7 K/mm3 (4.0-10.0)
[2017-06-27 08:25] LABS: ALBUMIN 3.3 g/dl (3.4-5.0); ANION GAP 13 (8-16); CALCIUM 8.1 mg/dL (8.5-10.1); CO2 24 mmol/L (21-32); CREATININE 1.1 mg/dL (0.7-1.3); GLUCOSE,RANDOM 106 mg/dL (74-106); SGPT/ALT 27 U/L (12-78)
[2017-06-27 08:27] LABS: ALK PHOS 112 U/L (45-117); BILIRUBIN,TOTAL 1.4 mg/dL (0.2-1.0); SGOT/AST 20 U/L (15-37); TOT PROT 5.9 g/dl (6.4-8.2)
[2017-06-27] MEDS ORDERED: PT OWN MED DRAWER 7, Y5N ONE ×2 (09:09→21:20)
[2017-06-27] MEDS: APIXABAN 5 MG TABLET PO SCH ×2 (09:35→22:25)
[2017-06-27] MEDS: ACLIDINIUM BROMIDE 400 MCG/INH AERO.POWD IH SCH ×2 (09:35→22:25)
[2017-06-27] MEDS: METOPROLOL SUCCINATE 50 MG TAB.SR.24H (FP) PO SCH (09:35)
[2017-06-27] MEDS: CEFUROXIME AXETIL 500 MG TABLET PO SCH ×2 (09:35→22:25)
[2017-06-27] MEDS: BUDESONIDE/FORMETEROL FUMARATE 80/4.5 mcg INHALER IH SCH ×2 (09:35→22:25)
--- NOTE | 2017-06-27 09:36 | PN ---
Physical Exam: SUBJECTIVE: Patient seen and examined at the bedside. Ambulated with me apx 100 feet today. During ambulation patient denied any chest discomfort, dizziness or shortness of breath. Heart rate on monitor maintained between 100-110 with ambulation. OBJECTIVE: Patient ambulated with me apx 100 feet today. His gait was steady and denied any chest discomfort, dizziness or shortness of breath during ambulation. Heart rate on monitor maintained between 100-110 with ambulation. Will discharge once cleared by cardiology, holter monitor as outpatient? tmax 99.8f, on Ceftin Vital Signs Period Temp Pulse Resp BP Sys/Villalobos Pulse Ox Last 24 Hr 97.5 F-99.8 F 88-105 16-20 115-146/64-82 95 GENERAL: The patient is awake, alert, and fully oriented, in no acute distress. HEAD: Normal with no signs of trauma. EYES: PERRL, extraocular movements intact, sclera anicteric, conjunctiva clear. No ptosis. ENT: Ears normal, nares patent, oropharynx clear without exudates, moist mucous membranes. NECK: Trachea midline, full range of motion, supple. LUNGS: Breath sounds equal, clear to auscultation bilaterally, no wheezes, no crackles, no accessory muscle use. HEART: atrial fib 90s-110s ABDOMEN: Soft, nontender, nondistended, normoactive bowel sounds, no guarding, no rebound, no hepatosplenomegaly, no masses. EXTREMITIES: 2+ pulses, warm, well-perfused, no edema. NEUROLOGICAL: Normal speech, steady gait. PSYCH: Normal mood, normal affect. SKIN: Warm, dry, normal turgor, no rashes or lesions noted Laboratory Results - last 24 hr 06/27/17 06/27/17 07:00 07:00 WBC 8.7 RBC 4.64 Hgb 13.8 Hct 42.0 MCV 90.5 MCH 29.8 MCHC 33.0 RDW 13.6 Plt Count 142 MPV 10.9 Neutrophils % 76.4 Lymphocytes % 7.6 L D Monocytes % 10.1 Eosinophils % 5.3 H Basophils % 0.6 Sodium 143 Potassium 3.6 Chloride 106 Carbon Dioxide 24 Anion Gap 13 BUN 21 H Creatinine 1.1 Creat Clearance w eGFR > 60 Random Glucose 106 Calcium 8.1 L Total Bilirubin 1.4 H D AST 20 D ALT 27 D Alkaline Phosphatase 112 Total Protein 5.9 L Albumin 3.3 L Active Medications Generic Name Dose Route Start Last Admin Trade Name Freq PRN Reason Stop Dose Admin Acetaminophen 650 mg 06/24/17 17:06 06/26/17 20:40 Tylenol - PO 650 mg Q6H PRN Administration FEVER OR PAIN Aclidinium [place] 1 puff 06/23/17 22:00 06/26/17 22:29 Tudorza - IH 1 inh BID MARY Administration Amlodipine Besylate 2.5 mg 06/27/17 12:00 Norvasc - PO DAILY@1200 MARY Apixaban 5 mg 06/23/17 22:00 06/26/17 22:29 Eliquis - PO 5 mg BID MARY Administration Budesonide/Formoterol Fumarate 2 puff 06/23/17 22:00 06/26/17 22:29 Symbicort 80/4.5mcg - IH 2 puff BID MARY Administration Cefuroxime Axetil 500 mg 06/26/17 22:00 06/26/17 22:29 Ceftin - PO 500 mg BID MAYR Administration Metoprolol Succinate 50 mg 06/26/17 22:00 06/26/17 22:30 Toprol Xl - PO 50 mg BID MARY Administration Rosuvastatin Calcium 20 mg 06/25/17 22:00 06/26/17 22:28 Crestor - PO 20 mg HS MARY Administration ASSESSMENT/PLAN: Mr. Lan is an 86 year old male with a significant past medical history of hypertension, hld, New onset afib (on Eliquis/afib diagnosed 10/2016) who presents to the emergency department today following an episode of feeling dizzy and possibly losing consciousness shortly this morning. It was reported that patient was seated with his when witnessed pt's eyes rolling back. Pt became unresponsive and slumped over but did not fall. Pt's states he was unresponsive for about 10 seconds before he regained consciousness. He does not recall the event but does report episodes of dizziness. He denies chest pain or shortness of breath. Ambulates with a walker at home. The patient denies chest pain, shortness of breath, headache and dizziness. He further denies fever, chills, nausea, vomit, diarrhea and constipation. Imaging: CXR 06/23/2017: No acute pathology. 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 Cardiology may adjust cardiac meds today, continue to monitor on tele On Eliquis home dose, continue Hypertension - chronic A/P: Monitor BP on metoprolol and adjust dose accordingly ID/UTI: Fever of unknown source - resolving A/P: WBC wnl, tmax 99.8 blood/urine cultures negative On Ceftin 500mg BID PO x 5 days (06/26 - 07/01) Fever curve improving PPX DVT: On eliquis for Afib GI: deferred Disposition: Full code. discharge tomorrow once cleared by cardiology. Visit type - Emergency Visit Emergency Visit: Yes ED Registration Date: 06/23/17 Care time: The patient presented to the Emergency Department on the above date and was hospitalized for further evaluation of their emergent condition. - New Patient This patient is new to me today: No - Critical Care Critical Care patient: No - Discharge Referral Referred to [facility] Med P.C.: No
[2017-06-27] MEDS ORDERED: POTASSIUM CHLORIDE TABS 20 MEQ TABLET.ER (FP) PO ONE (09:54)
[2017-06-27] MEDS ORDERED: amLODIPine BESYLATE 2.5 MG TABLET (FP) PO SCH (12:00)
--- NOTE | 2017-06-27 12:36 | EKG ---
Test Reason : Blood Pressure : / mmHG Vent. Rate : 065 BPM Atrial Rate : 076 BPM P-R Int : 000 ms QRS Dur : 094 ms QT Int : 410 ms P-R-T Axes : 000 019 037 degrees QTc Int : 426 ms ATRIAL RHYTHM IS UNCERTAIN PROBABLLY ATRIAL FIBRILLATION WITH MODERATE VENTRICULAR RESPONSE OCCASIONAL SINGLE VENTRICULAR ECTOPIC BEATS BASELINE ARTIFACTS 06-NOV-2016 13:22, ATRIAL FIBRILLATION HAS REPLACED SINUS RHYTHM CLINICAL CORRELATION AND REPEAT TRACING INDICATED Confirmed by SHADY FARRELL MD ([id number]) on 06/27/2017 12:36:10 PM Referred By: Confirmed By:SHADY FARRELL MD
--- NOTE | 2017-06-27 12:52 | PN ---
Progress Note (short form) - Note Progress Note: Chief Complaint: syncope History of Present Illness: no complaints today, no dizziness, palps, cp, sob. Lopressor bid dosing changed to toprol bid yesterday, but continues to have breakthrough rvr. Current Medications Acetaminophen (Tylenol -) 650 mg PO Q6H PRN PRN Reason: FEVER OR PAIN Last Admin: 06/26/17 20:40 Dose: 650 mg Aclidinium [place] (Tudorza -) 1 puff IH BID [facility] Last Admin: 06/27/17 09:35 Dose: 1 inh Amlodipine Besylate (Norvasc -) 2.5 mg PO DAILY@1200 [facility] Last Admin: 06/27/17 11:02 Dose: 2.5 mg Apixaban (Eliquis -) 5 mg PO BID [facility] Last Admin: 06/27/17 09:35 Dose: 5 mg Budesonide/Formoterol Fumarate (Symbicort 80/4.5mcg -) 2 puff IH BID [facility] Last Admin: 06/27/17 09:35 Dose: 2 puff Cefuroxime Axetil (Ceftin -) 500 mg PO BID [facility] Last Admin: 06/27/17 09:35 Dose: 500 mg Metoprolol Succinate (Toprol Xl -) 50 mg PO BID [facility] Last Admin: 06/27/17 09:35 Dose: 50 mg Rosuvastatin Calcium (Crestor -) 20 mg PO HS [facility] Last Admin: 06/26/17 22:28 Dose: 20 mg Vital Signs - 24 hr 06/26/17 06/26/17 06/26/17 14:00 17:52 21:00 Temperature 97.6 F 99 F 99.8 F H Pulse Rate 92 H 88 98 H Respiratory 16 18 20 Rate Blood Pressure 119/66 146/74 139/64 O2 Sat by Pulse 95 Oximetry (%) 06/27/17 06/27/17 06/27/17 01:00 05:00 11:02 Temperature 98.4 F 97.5 F L Pulse Rate 95 H 98 H 97 H Respiratory 20 20 Rate Blood Pressure 130/75 134/82 145/76 O2 Sat by Pulse Oximetry (%) Intake & Output 06/25/17 06/26/17 06/27/17 06/28/17 07:59 07:59 07:59 07:59 Intake Total 430 130 820 370 Balance 430 130 820 370 Constitutional: Yes: No Distress, Calm Eyes: No: Sclera Icterus HENT: No: Nasal Congestion Cardiovascular: Yes: Pulse Irregular, S1, S2, Other (PMI non diplaced). No: Gallop, Murmur Respiratory: Yes: bibasilar crackles L>R No: Accessory Muscle Use, Rales, Wheezes Gastrointestinal: Yes: Normal Bowel Sounds, Soft. No: Tenderness Musculoskeletal: Yes: Other (No kyphosis) Extremities: No: Cold Edema: No Integumentary: No: Jaundice Neurological: Yes: Alert, Oriented (x3) Psychiatric: No: Agitated Labs: CBC, BMP 06/27/17 07:00 06/27/17 07:00 Laboratory Tests 06/27/17 07:00 Total Bilirubin 1.4 H D AST 20 D ALT 27 D Alkaline Phosphatase 112 Albumin 3.3 L - ....Imaging EKG: Other (tele: AF with recurrent breakthrough rvr to the 130's. pvc's) Assessment/Plan Echo 11/01 (DF): nl LV/EF; no RWMA. borderling RVE with nl fxn. mild LAE. mild MR /TR. RVSP 41. MPI 12/30 (mago): no STs, no ischemia, nl EF (no TID) 86 yo male with HTN, HPL and recent diagnosis of AF on NOAC now with recurrent syncopal episode. Syncope -prior episode early 2016 with poor recall of events, ? due to PNA at that time. bp dropped 140s to 130s on standing so amlodipine was held then. he remained asymptomatic since then on office f/u -highly likely the current episode was related to vasodilating meds in predisposed pt (took flomax in AM, not his usual time, plus recently started low dose amlodipine) who does not hydrate much in am. -cont tele--will do outpt monitor to confirm no SSS -rec PM dosing of flomax, and amlodipine at lunch time -rpt echo ordered here, results pending -no orthostatic BP drop x 1 here, not suspected etiology Afib: -during prior admit early 2016 when pt presented with syncope, his PMD weighed in as did family, and that was first time episode with no gait disturbances, hence AC was initiated. he has been stable as outpt with no ongoing balance problems/falls risks -HR 80s on presentation to ER, max 110s--doubt cause of syncope from rhythm related hemodynamic changes -Had RVR here (150s)--increased lopressor from 25 bid to 37.5mg PO BID, then to 50 bid. -06/26 changed to toprol 50 bid (for better 24 hr drug levels), -06/27 HR's remain elevated, will uptitrate toprol further today. Con't tele for now. Potential d/c tomorrow. HTN: -stable -same meds as above. monitor with uptitration of metoprolol HPL -Continue statin, tbili slightly up today, would reduce crestor to outpatient dose of 10 mg/day. TAA: -4.[address] on prior CT scan -bp control as doing
[2017-06-27] MEDS ORDERED: METOPROLOL SUCCINATE 25 MG TAB.SR.24H (FP) PO ONE (14:26)
[2017-06-27] MEDS: METOPROLOL SUCCINATE 25 MG TAB.SR.24H (FP) PO SCH (22:24)
[2017-06-27] MEDS: ROSUVASTATIN CA 10 MG TABLET (FP) PO SCH (22:24)
[2017-06-28 06:58] LABS: BASOPHIL 0.8 % (0-2.0); EOSINOPHIL 7.6 % (0-4.5); MCH 29.9 pg (25.7-33.7); MCHC 33.2 g/dl (32.0-35.9); MEAN CELL VOLUME 89.9 fl (80-96); MEAN PLT VOLUME 10.7 fl (7.5-11.1); NEUTROPHILS 67.1 % (42.8-82.8); PLATELET COUNT 152 K/MM3 (134-434); RDW 13.4 % (11.9-15.9); WHITE BLOOD COUNT 6.9 K/mm3 (4.0-10.0)
[2017-06-28 07:11] LABS: ALBUMIN 3.2 g/dl (3.4-5.0); ANION GAP 10 (8-16); BILIRUBIN,TOTAL 0.6 mg/dL (0.2-1.0); CALCIUM 8.2 mg/dL (8.5-10.1); CO2 25 mmol/L (21-32); CREATININE 1.1 mg/dL (0.7-1.3); GLUCOSE,RANDOM 96 mg/dL (74-106); SGOT/AST 18 U/L (15-37); SGPT/ALT 26 U/L (12-78); TOT PROT 5.8 g/dl (6.4-8.2)
[2017-06-28 07:12] LABS: ALK PHOS 104 U/L (45-117)
--- NOTE | 2017-06-28 08:41 | DS ---
Physical Exam: SUBJECTIVE: Patient seen and examined OBJECTIVE: Vital Signs Period Temp Pulse Resp BP Sys/Villalobos Pulse Ox Last 24 Hr 98.3 F-98.5 F 83-97 18-66 108-145/66-83 100 PHYSICAL EXAM GENERAL: The patient is awake, alert, and fully oriented, in no acute distress. HEAD: Normal with no signs of trauma. EYES: PERRL, extraocular movements intact, sclera anicteric, conjunctiva clear. No ptosis. ENT: Ears normal, nares patent, oropharynx clear without exudates, moist mucous membranes. NECK: Trachea midline, full range of motion, supple. LUNGS: Breath sounds equal, clear to auscultation bilaterally, no wheezes, no crackles, no accessory muscle use. HEART: irregular, S1, S2 ABDOMEN: Soft, nontender, nondistended, normoactive bowel sounds, no guarding, no rebound, no hepatosplenomegaly, no masses. EXTREMITIES: 2+ pulses, warm, well-perfused, no edema. NEUROLOGICAL: Normal speech, steady gait. PSYCH: Normal mood, normal affect. SKIN: Warm, dry, normal turgor, no rashes or lesions noted LABS Laboratory Results - last 24 hr 06/28/17 06/28/17 05:49 05:49 WBC 6.9 RBC 4.48 Hgb 13.4 Hct 40.3 MCV 89.9 MCH 29.9 MCHC 33.2 RDW 13.4 Plt Count 152 MPV 10.7 Neutrophils % 67.1 Lymphocytes % 13.3 D Monocytes % 11.2 H Eosinophils % 7.6 H Basophils % 0.8 Sodium 143 Potassium 4.0 Chloride 108 H Carbon Dioxide 25 Anion Gap 10 BUN 26 H D Creatinine 1.1 Creat Clearance w eGFR > 60 Random Glucose 96 Calcium 8.2 L Total Bilirubin 0.6 D AST 18 ALT 26 Alkaline Phosphatase 104 Total Protein 5.8 L Albumin 3.2 L HOSPITAL COURSE: Date of Admission:06/23/17 Date of Discharge: 06/28/17 Mr. Lan is an 86 year old male with a significant past medical history of hypertension, hld, New onset afib (on Eliquis/afib diagnosed 10/2016) who presented to the emergency department following an episode of feeling dizzy and possibly losing consciousness. It was reported that patient was seated with his when witnessed pt's eyes rolling back. Pt became unresponsive and slumped over but did not fall. Pt's states he was unresponsive for about 10 seconds before he regained consciousness. He does not recall the event but does report episodes of dizziness. He denies chest pain or shortness of breath. Ambulates with a walker at home. The patient denies chest pain, shortness of breath, headache and dizziness. He further denies fever, chills, nausea, vomit, diarrhea and constipation. Imaging: CXR 06/23/2017: No acute pathology. Clear lungs, moderate enlargement of cardiac silhouette Head CT 06/24/2017: negative Cardiology: Syncope/Pre-syncope, resolved Troponins negative x [address] negative Hyperlipidemia - chronic lipid panel reviewed, increased Crestor to 20mg Atrial fibrillation with RVR Observed on telemetry with rate in 100's Toprol XL increased to 75mg BID for better rate control On Eliquis home dose, continue Hypertension - chronic Continued Toprol XL Fever Spiked a fever on to 101.3, unclear source, all cultures negative, CXR clear Treated empirically with Ceftin 500mg BID PO x 5 days (06/26 - 07/01) Minutes to complete discharge: 35 Discharge Summary Reason For Visit: SYNCOPE Current Active Problems Syncopal episodes (Acute) Condition: Improved - Instructions Diet, Activity, Other Instructions: Mr. Lan: Please continue the Ceftin 500mg twice per day (at 8am and 8pm) until 07/01/2017. Please follow up with Dr. Krueger within one week after discharge for follow up and repeat blood work. Please also follow up with your PCP for repeat blood work New medications: - Your Crestor has been increased to 20mg daily since your lipids are sightly elevated, repeat blood work with your primary care physician - Ceftin 500mg twice per day at 8am and 8pm. - Lopressor dose has been increased because your heart rate was elevated during your hospitalization. Please follow up with your tunnel inspector in 1 week. Please return to the ER with any new or worsening symptoms. [facility] [phone] Referrals: Tonya Dumas MD [Primary Care Provider] - 2 Weeks Walter Krueger MD [Staff Physician] - 1 Week Disposition: HOME - Home Medications Comprehensive Discharge Medication List: Ambulatory Orders Albuterol Sulfate Inhaler - [Ventolin HFA Inhaler -] 2 inh PO Q4H #1 inh Apixaban [Eliquis -] 5 mg PO BID #60 tablet 11/10/16 Budesonide/Formeterol Fumarate [SYMBICORT 80/4.5mcg -] 2 puff IH BID #1 inhaler 11/10/16 Tiotropium [place] [Spiriva] 1 puff IH DAILY #1 inh 11/10/16 Amlodipine Besylate [Norvasc -] 2.5 mg PO DAILY 06/23/17 Rosuvastatin Calcium [Crestor] 10 mg PO DAILY 06/23/17 Amlodipine Besylate [Norvasc -] 2.5 mg PO DAILY@1200 tablet 06/27/17 Cefuroxime Axetil [Ceftin -] 500 mg PO BID #10 tablet 06/27/17 Rosuvastatin Calcium [Crestor] 20 mg PO HS #30 tablet 06/27/17 This patient is new to me today: Yes Date on this admission: 06/28/17 Emergency Visit: Yes ED Registration Date: 06/23/17 Care time: The patient presented to the Emergency Department on the above date and was hospitalized for further evaluation of their emergent condition. Critical Care patient: No - Discharge Referral Referred to [facility] No
[2017-06-28] MEDS ORDERED: PT OWN MED DRAWER 7, Y5N ONE (09:05)
[2017-06-28] MEDS: APIXABAN 5 MG TABLET PO SCH (09:06)
[2017-06-28] MEDS: ACLIDINIUM BROMIDE 400 MCG/INH AERO.POWD IH SCH (09:06)
[2017-06-28] MEDS: CEFUROXIME AXETIL 500 MG TABLET PO SCH (09:06)
[2017-06-28] MEDS: METOPROLOL SUCCINATE 25 MG TAB.SR.24H (FP) PO SCH (09:06)
[2017-06-28] MEDS: BUDESONIDE/FORMETEROL FUMARATE 80/4.5 mcg INHALER IH SCH (09:07)
--- NOTE | 2017-06-28 11:09 | PN ---
Progress Note (short form) - Note Progress Note: History of Present Illness: no complaints today, no dizziness, palps, cp, sob. Vital Signs Period Temp Pulse Resp BP Sys/Villalobos Pulse Ox Last 24 Hr 98.3 F-98.5 F 83-94 18-66 108-140/66-83 100 Constitutional: Yes: No Distress, Calm Eyes: No: Sclera Icterus HENT: No: Nasal Congestion Cardiovascular: Yes: Pulse Irregular, S1, S2, Other (PMI non diplaced). No: Gallop, Murmur Respiratory: Yes: cta bl nl eff No: Accessory Muscle Use, Rales, Wheezes Gastrointestinal: Yes: Normal Bowel Sounds, Soft. No: Tenderness Extremities: No: Cold Edema: No Integumentary: No: Jaundice Neurological: Yes: Alert, Oriented (x3) Psychiatric: No: Agitated Labs: CBC, BMP 06/28/17 05:49 06/28/17 05:49 tele: afib, rate controlled Echo 11/01 (DF): nl LV/EF; no RWMA. borderling RVE with nl fxn. mild LAE. mild MR /TR. RVSP 41. echo 06/2017: nl lv/rv 1+ lae. 1+ mac, 1+ mr. rvsp 30-40. mod (although not c/w documented AV measurements - 1.6 m/s. pg 10/mg 5) MPI 12/30 (mago): no STs, no ischemia, nl EF (no TID) Assessment/Plan 86 yo male with HTN, HPL and recent diagnosis of AF on NOAC now with recurrent syncopal episode. Syncope -prior episode early 2016 with poor recall of events, ? due to PNA at that time. bp dropped 140s to 130s on standing so amlodipine was held then. he remained asymptomatic since then on office f/u -highly likely the current episode was related to vasodilating meds in predisposed pt (took flomax in AM, not his usual time, plus recently started low dose amlodipine) who does not hydrate much in am. -tele w/o etiology here, will do outpt monitor to confirm no SSS -rec PM dosing of flomax -rpt echo ordered here, results pending -no orthostatic BP drop here, not suspected etiology Afib: -during prior admit early 2016 when pt presented with syncope, his PMD weighed in as did family, and that was first time episode with no gait disturbances, hence AC was initiated. he has been stable as outpt with no ongoing balance problems/falls risks -HR 80s on presentation to ER, max 110s--doubt cause of syncope from rhythm related hemodynamic changes -Had RVR here (150s)--increased lopressor from 25 bid to 37.5mg PO BID, then to 50 bid. -06/26 changed to toprol 50 bid (for better 24 hr drug levels), -06/27 HR's remain elevated, will uptitrate toprol further today. Con't tele for now. Potential d/c tomorrow. -06/28: rate controlled, cont same bb HTN: -stable on current meds HPL -Continue statin TAA: -4.2 cm aneurysm on prior CT scan -bp control as doing cardiac walker stable for dc
[2017-06-28 11:48] VITALS: BP 128/75; PULSE 93; TEMP 97.9
== END 2017-06-28 13:28 | disposition home or self-care (01) | DRG 312 ==
LOC: JER 12:19 → JERBED 15:31 → J4S 16:52 → OBSVTOIN 18:33
PROVIDERS: ADMIT Internal Medicine; ATTEND Nurse Practitioner Acute Care
DX: R55 Syncope and collapse (principal); N39.0 Urinary tract infection, site not specified; I10 Essential (primary) hypertension; E78.5 Hyperlipidemia, unspecified; Z87.891 Personal history of nicotine dependence; D72.829 Elevated white blood cell count, unspecified; I48.2 Chronic atrial fibrillation
CPT/HCPCS: 36415; 70450-TC; 71020-TC; 80053; 80061; 81003; 81015; 83036; 83721; 83735; 84443; 84484; 85025; 85027; 87040; 87086; 87804; 93005; 93010; 93306-TC; 94761; 97116-GP; 97161-GP; 99285-25; G0378

== ENCOUNTER 2018-09-23 12:12 | Emergency (ER) | payer OTHER, BC ==
--- NOTE | 2018-09-23 12:20 | PDOC ---
Attending Attestation - Resident Resident Name: Ezequiel Davidson - ED Attending Attestation I have performed the following: I have examined & evaluated the patient, The case was reviewed & discussed with the resident, I agree w/resident's findings & plan, Exceptions are as noted - HPI HPI: 09/23/18 15:07 Fever/chills, productive cough since last night. No chest pain, shortness of breath, nausea, vomiting, diarrhea, visual or focal neurologic symptoms, unsteadiness of gait. Remainder systems reviewed and found to be negative. Pneumonia last year requiring hospitalization. Probable mild COPD. - Physicial Exam PE: 09/23/18 15:08 Alert and oriented well-developed well-nourished no acute distress cheerful and cooperative. Denies chest pain or dyspnea Afebrile, vital signs normal except for borderline oxygen saturation of 94% initially, which improved to 96% with observation HEENT clear Neck supple without bruit mass or nodes Chest clear with full breath sounds bilaterally. No wheezes rales or rhonchi CV regular without murmur rub or gallop no tachycardia Abdomen benign Skin clear, no rash, adequate turgor and wet mucous membranes - Medical Decision Making 09/23/18 15:09 Assessment: With fever and chills, occult UTI/urosepsis or influenza are most likely, even though the patient did get a flu immunization. Occult pneumonia is also a possibility, as well as acute bronchitis Plan: Chest x-ray is clear. No pneumonia is suspected. White blood count normal and chemistries without significant abnormalities. Influenza swab is negative. Urinalysis shows no sign of infection. Most likely diagnosis is acute bronchitis. Bedrest and antibiotics prescribed, with close follow-up and return to ER if there is persistent fever, chest pain, or shortness of breath. Fully ambulatory and in no distress upon discharge with family to follow-up as directed
[2018-09-23] MEDS ORDERED: ACETAMINOPHEN INJECTION 100 ML IVPB ONE (12:53)
[2018-09-23] MEDS ORDERED: ACETAMINOPHEN 1000 MG/100 ML VIAL (NON FORMULARY) IVPB ONE (12:53)
--- NOTE | 2018-09-23 13:02 | PDOC ---
History of Present Illness - General Chief Complaint: Respiratory Stated Complaint: COUGH Time Seen by Provider: 09/23/18 12:20 - History of Present Illness Initial Comments: The patient is an 87M w/ a history of A-fib (eliquis), COPD, and HTN who presents for evaluation of 1d of cough w/ white sputum with associated subjective fevers (Tm at home 100.1), chills, and nausea. The patient denies shortness of breath, vomiting, chest pain, diarrhea, dysuria, hematuria, or blood in his stool. Patient reports a history of pneumonia in the past, approximately once yearly. Patient also reports an admission within the past year for admission for PNA and asymptomatic UTI. 09/23/18 13:14 Past History - Past Medical History Allergies/Adverse Reactions: Allergies Allergy/AdvReac Type Severity Reaction Status Date / Time No Known Allergies Allergy Verified 09/23/18 12:12 Home Medications: Ambulatory Orders Albuterol Sulfate Inhaler - [Ventolin HFA Inhaler -] 2 inh PO Q4H #1 inh Apixaban [Eliquis -] 5 mg PO BID #60 tablet 11/10/16 Budesonide/Formeterol Fumarate [SYMBICORT 80/4.5mcg -] 2 puff IH BID #1 inhaler 11/10/16 Tiotropium [place] [Spiriva] 1 puff IH DAILY #1 inh 11/10/16 Cefuroxime Axetil [Ceftin -] 500 mg PO BID #10 tablet 06/27/17 Rosuvastatin Calcium [Crestor] 20 mg PO HS #30 tablet 06/27/17 Metoprolol Succinate [Toprol XL -] 75 mg PO BID #60 tab 06/28/17 Azithromycin 500 mg PO DAILY 5 Days #5 tablet 09/23/18 Anemia: No Asthma: No Cancer: No Cardiac Disorders: No CVA: No COPD: Yes CHF: No Dementia: No Diabetes: No GI Disorders: No Disorders: No HTN: Yes Hypercholesterolemia: Yes Liver Disease: No Seizures: No Thyroid Disease: No - Surgical History Abdominal Surgery: No Appendectomy: No Cardiac Surgery: No Cholecystectomy: No Lung Surgery: No Neurologic Surgery: No Orthopedic Surgery: Yes (right knee Arthroscopy,Bilateral Shoulder Arthroscopy) - Suicide/Smoking/Psychosocial Hx Smoking History: Never smoked Have you smoked in the past 12 months: No If you are a former smoker, when did you quit?: 1977 Information on smoking cessation initiated: No Hx Alcohol Use: No Drug/Substance Use Hx: No Substance Use Type: None Hx Substance Use Treatment: No Review of Systems - Review of Systems Able to Perform ROS?: Yes Comments:: GENERAL/CONSTITUTIONAL: + fever & chills. No weakness HEAD, EYES, EARS, NOSE AND THROAT: No change in vision. No ear pain or discharge. No sore throat CARDIOVASCULAR: No chest pain or shortness of breath RESPIRATORY: Denies hemoptysis GASTROINTESTINAL: No vomiting, diarrhea or constipation GENITOURINARY: No dysuria, frequency, or change in urination MUSCULOSKELETAL: No joint or muscle swelling or pain. No neck or back pain SKIN: No rash NEUROLOGIC: No headache, vertigo, loss of consciousness, or change in strength/ sensation ENDOCRINE: No increased thirst. No abnormal weight change HEMATOLOGIC/LYMPHATIC: No anemia, easy bleeding, or history of blood clots ALLERGIC/IMMUNOLOGIC: No hives or skin allergy 09/23/18 13:03 Is the patient limited Icelandic proficient: No *Physical Exam - Vital Signs Last Vital Signs Temp Pulse Resp BP Pulse Ox 100.1 F H 102 H 20 161/96 93 L 09/23/18 12:12 09/23/18 12:12 09/23/18 12:12 09/23/18 12:12 09/23/18 12:12 - Physical Exam Comments: GENERAL: Awake, alert, and fully oriented, in no acute distress HEAD: No signs of trauma, normocephalic, atraumatic EYES: PERRLA, EOMI, sclera anicteric, conjunctiva clear ENT: Hearing grossly normal, nares patent, oropharynx clear without exudates LUNGS: No distress, speaks full sentences, clear to auscultation bilaterally; mild non-productive cough observed HEART: Regular rate and irregularly irregular rhythm, normal S1 and S2, no murmurs appreciated, peripheral pulses normal and equal bilaterally ABDOMEN: Soft, nontender, normoactive bowel sounds. No guarding, no rebound EXTREMITIES : Normal inspection, Normal range of motion, no edema. No clubbing or cyanosis NEUROLOGICAL: Cranial nerves II through XII grossly intact. Normal speech, no focal sensorimotor deficits 09/23/18 13:04 Moderate Sedation - Procedure Monitoring Vital Signs: Procedure Monitoring Vital Signs Temperature 100.1 F H 09/23/18 12:12 Pulse Rate 102 H 09/23/18 12:12 Respiratory Rate 20 09/23/18 12:12 Blood Pressure 161/96 09/23/18 12:12 O2 Sat by Pulse Oximetry (%) 93 L 09/23/18 12:12 ED Treatment Course - LABORATORY CBC & Chemistry Diagram: 09/23/18 13:00 09/23/18 13:00 Medical Decision Making - Medical Decision Making The patient is an 87M w/ a history of HTN, recurrent PNA (approx Qyear) and a- fib (eliquis) who presents for evaluation of 1d of fevers, cough, and chills Ddx: PNA, influenza, URI, UTI ED Course CMP, CBC, Influenza swab, UA, cardiac enzymes CXR ECG Orfirmev 1000mg IV once NS 1L IV 09/23/18 13:04 No leukocytosis No anemia Bili 1.2 No DONALDO Lytes wnl CXR w/o evidence of PNA 09/23/18 13:37 Influenza neg UA w/o evidence of UTI 09/23/18 14:49 Likely with viral v bacterial bronchitis -Rx for Azithromycin sent to pt's pharmacy Plan for D/C w/ PCP f/u Discharge instructions and return precautions given Plan discussed with patient and family who are in agreement and verbalized understanding Dispo: home 09/23/18 14:52 *DC/Admit/Observation/Transfer Diagnosis at time of Disposition: Bronchitis - Discharge Dispostion Disposition: HOME Condition at time of disposition: Stable Decision to Admit order: No - Prescriptions Prescriptions: Azithromycin 500 mg PO DAILY 5 Days #5 tablet - Referrals Referrals: Tonya Dumas MD [Staff Physician] - - Patient Instructions Printed Discharge Instructions: DI for Acute Bronchitis Additional Instructions: You were seen in the Emergency Department today for evaluation of cough with fevers and chills. You were found to not have influenza, a urinary tract infection, or signs of pneumonia on chest x-ray. Please review the handout provided at discharge. An antibiotic (azithormycin) was sent to your pharmacy, take as directed. Please follow up with your primary care provider. Return to the Emergency Department if you develop persistent fevers/chills, worsening symptoms, chest pain, trouble breathing, or any new/concerning symptoms. - Post Discharge Activity
[2018-09-23 13:16] VITALS: BMI 26.5
[2018-09-23] MEDS ORDERED: SODIUM CHLORIDE 0.9% 500 ML INFUS.BAG IV ONE (13:17)
[2018-09-23 13:22] LABS: BASO % 0.3 % (0-2.0); EOS % 0.3 % (0-4.5); HEMATOCRIT 38.6 % (35.4-49); HEMOGLOBIN 12.5 GM/dl (11.7-16.9); LYMPH % 10.6 % (8-40); MCH 29.4 pg (25.7-33.7); MCHC 32.3 g/dl (32.0-35.9); MEAN PLT VOLUME 10.6 fl (7.5-11.1); MONO % 5.1 % (3.8-10.2); NEUT % 83.7 % (42.8-82.8); PLATELET COUNT 133 K/MM3 (134-434); RBC 4.24 M/mm3 (4.00-5.60); RDW 12.4 % (11.9-15.9); WHITE BLOOD COUNT 7.7 K/mm3 (4.0-10.8)
[2018-09-23 13:30] LABS: ALBUMIN 3.9 g/dl (3.5-5.0); ALK PHOS 125 U/L (32-92); ANION GAP 9 MMOL/L (8-16); BILIRUBIN,TOTAL 1.2 mg/dl (0.2-1.0); BLOOD UREA NITROGEN 21 mg/dl (7-18); CALCIUM 8.5 mg/dl (8.4-10.2); CHLORIDE 106 mmol/L (98-107); CO2 25 mmol/L (22-28); CREATININE 0.9 mg/dl (0.6-1.3); GLUCOSE,RANDOM 117 mg/dl (74-106); POTASSIUM 3.7 mmol/L (3.5-5.1); SGOT/AST 32 U/L (10-42); SGPT/ALT 26 U/L (10-40); SODIUM 140 mmol/L (136-145); TOT PROT 6.1 g/dl (6.4-8.3)
[2018-09-23 14:14] LABS: URINE APPEARANCE Clear; URINE BILIRUBIN Negative (NEGATIVE); URINE COLOR Yellow; URINE GLUCOSE (UA) Negative (NEGATIVE); URINE KETONE Negative (NEGATIVE); URINE LEUK ESTERASE Negative (NEGATIVE); URINE NITRITE Negative (NEGATIVE); URINE PROTEIN Negative (NEGATIVE); URINE UROBILINOGEN 0.2 (0.2-1.0)
[2018-09-23 14:21] VITALS: BP 116/70; PULSE 88; TEMP 98.9
[2018-09-23 14:23] LABS: EPI CELLS 2+ /HPF; URINE WBC 0-2 (0-2)
[2018-09-23 14:24] LABS: URINE BACTERIA 1+ /hpf (NEGATIVE)
--- NOTE | 2018-09-23 17:13 | EKG ---
Test Reason : Blood Pressure : / mmHG Vent. 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
== END 2018-09-23 15:13 | disposition home or self-care (01) ==
LOC: FER 12:12
PROC: 3E0337Z Introduction of Electrolytic and Water Balance Substance into Peripheral Vein, Percutaneous Approach (ICD-10-PCS; principal; 2018-09-23)
PROC: 3E033NZ Introduction of Analgesics, Hypnotics, Sedatives into Peripheral Vein, Percutaneous Approach (ICD-10-PCS; 2018-09-23)
DX: J40 Bronchitis, not specified as acute or chronic (principal); I10 Essential (primary) hypertension; J18.9 Pneumonia, unspecified organism; I48.91 Unspecified atrial fibrillation; Z79.01 Long term (current) use of anticoagulants
CPT/HCPCS: 36415; 71045-TC-FY; 80053; 81003; 81015; 82550; 84484; 85025; 87086; 87804; 93005; 99283-25; J0131